=== PATIENT | female | born 1990 | race Caucasian/White ===

== ENCOUNTER 2023-04-25 15:29 | Inpatient (IN) | payer MEDICARE, MEDICAID, SELFPAY ==
[2023-04-25 15:56] VITALS: BP 118/79; BP 126/64; PULSE 56; PULSE 97; RESP 18; TEMP 36.3; O2SAT 100; O2SAT 96; BMI 23.7
--- NOTE | 2023-04-25 16:24 | PC.NURSE ---
per ems pt called 911 and reported that she thinks cameras are in her house and someone is following her. she admits to both visual and auditory hallucination. denies si/hi. pt a+o x3, denies pain, vss.
[2023-04-25 16:51] LABS: Appearance Urine Turbid; Color Urine Yellow; Glucose Urine UA Negative (Negative); Leukocyte Esterase Urine Moderate (2+) (Negative); Nitrite Urine Negative (Negative); Specific Gravity - Urine 1.015 (1.005-1.025); UMIC TRIGGER UACC YES; UPreg QC Valid YES; Urine Blood Negative (Negative); Urine Ketones 15 mg/dL (Negative); Urine Pregnancy NEGATIVE (NEGATIVE); Urine Protein Trace mg/dL (Neg-Trace)
[2023-04-25 16:58] LABS: Amphetamine Screen Urine Not Detected (Not Detect); Barbiturates, Urine Not Detected (Not Detect); Benzodiazepines Screen Urine Not Detected (Not Detect); Cannabinoid Screen Urine POSITIVE (Not Detect); Cocaine Screen Urine POSITIVE (Not Detect); Fentanyl, urine POSITIVE (Not Detect); Opiate Screen Urine POSITIVE (Not Detect); Phencyclidine Screen Urine Not Detected (Not Detect)
[2023-04-25 17:06] LABS: Bacteria Urine 2+ (None Seen); Hyaline Casts Urine 0-2 /LPF (0-2); UACC Culture Trigger YES; WBC Urine 21-50 /HPF (0-5)
[2023-04-25 17:12] LABS: COVID-19 Test Negative (Negative); IDNOW Serial# BCCEAD1C
--- NOTE | 2023-04-25 17:12 | ED_ITS ---
HPI - Psych General Chief Complaint: Psychiatric Symptoms Stated Complaint: CRISIS Time Seen by Provider: 04/25/23 16:00 Source: patient Mode of arrival: EMS Limitations: no limitations History of Present Illness HPI Narrative: Patient is a 32-year-old female who presents emergency department via EMS, reportedly she called 911 stating that she believes there are cameras in her home and that someone is following her. When asked she denies any drug or alcohol usage. She denies being on any medications at home. She denies any physical complaints at this time. Related Data Home Medications Medication Instructions Recorded Confirmed No Known Home Meds 04/25/23 04/25/23 Allergies Allergy/AdvReac Type Severity Reaction Status Date / Time No Known Allergies Allergy Verified 04/25/23 16:12 Review of Systems 2 Review of Systems: Yes all other systems are reviewed and are negative [facility] Past Medical History Attestation statement: The following information was validated with the patient. Source: old records reviewed Social History Social History Smoked in Last 30 Days: Yes Advance Directives: No Advance Directives Information Provided: No Healthcare Proxy: No Guardian: No Physical Exam 2 Vital Signs: Vital Signs: Last Vital Signs Temp 97.4 F 04/26/23 04:57 Pulse 74 04/26/23 04:57 Resp 16 04/26/23 04:57 BP 127/90 H 04/26/23 04:57 Pulse Ox 100 04/26/23 04:57 O2 Del Method Room Air 04/26/23 04:57 BMI result Body Mass Index 23.7 Appearance: Alert.?Oriented to person, place and time. No acute distress.?Normal affect. Eyes: Pupils equal, round and reactive to light.? ENT: Pharynx normal.?? Neck: Normal inspection.? Neck supple.?? CVS: Heart sounds normal. Normal heart rate and rhythm.? Pulses normal.?? Respiratory: No respiratory distress.? Lung sounds clear to auscultation bilaterally?? Abdomen: Soft and non-tender. Normoactive bowel sounds.?? Skin: Skin warm and dry.? Normal skin color.? ? Extremities: No lower extremity edema. Neuro: Moves all extremities spontaneously. Sensation intact bilaterally. CN II- XII intact. No focal neuro deficits. Ambulates with normal steady gait. Course Reevaluation(s) Reevaluation #1: Patient was evaluated by care team, she was placed on a Section 12 for inpatient bed search due to paranoia and delusions. Time: 01:47 Reevaluation #2: Physician observation continued. VS stable, inpatient bed search, RN reports no acute events overnight. started on macrobid x 5 days for UTI Medications Administered Discontinued Medications Generic Name Dose Route Start Last Admin Trade Name Te[place] PRN Reason Stop Dose Admin Cefuroxime Axetil 500 mg 04/25/23 17:34 04/25/23 17:58 Cefuroxime Axetil 500 Mg Tablet PO 04/25/23 17:35 500 mg ONCE ONE Administration Lorazepam 2 mg 04/26/23 06:02 04/26/23 06:10 Lorazepam 1 Mg Tablet PO 04/26/23 06:03 2 mg ONCE ONE Administration Medical Decision Making Medical Decision Making [facility] Narrative: Patient is a 32-year-old female presents emergency department via a EMS with apparently a and delusions. Denies any drug or alcohol usage, although upon examination she does have injection mckinnon to the bilateral arms. When asked she states ?they are old?. She denies any suicidal or homicidal ideations. She has no physical complaints at this time. Differential Diagnosis Differential Diagnoses: The differential diagnosis associated with the presentation includes (Paranoia, psychosis, substance use disorder) Admission/Observation Consideration of admission/observation: Escalation of care including admission/observation considered (Physician observation, inpatient bed search) Lab Data CBC and CMP are overall unremarkable. Urinalysis with pyuria, presence of squamous epithelial cells, no genitourinary symptoms, likely contamination. Toxicology testing positive for opiates, fentanyl, cocaine, and marijuana. 04/25/23 18:57 04/25/23 18:57 Labs: Lab Results 04/25/23 04/25/23 04/25/23 Range/Units 16:35 16:35 16:36 WBC (4.8-10.8) X10*3/uL RBC (4.20-5.50) X10*6/uL Hgb (12.0-16.0) g/dl Hct (37.0-47.0) % MCV (80.0-98.0) fL MCH (27.0-33.0) pg MCHC (31.0-35.0) g/dl RDW (11.0-16.0) % Plt Count (160-400) X10*3/uL MPV (9.4-12.3) fL Immature Gran % (Auto) (0.0-0.4) % Neut % (Auto) (45-73) % Lymph % (Auto) (20-40) % [place] % (Auto) (2-11) % Eos % (Auto) (0-4) % Baso % (Auto) (0-2) % Lymph # (Auto) (1.2-4.9) X10*3/uL [place] # (Auto) (0.1-1.2) X10*3/uL Eos # (Auto) (0.0-0.4) X10*3/uL Baso # (Auto) (0.0-0.2) X10*3/uL Abs Immat Gran (auto) (0.00-0.03) X10*3/uL Absolute Neuts (auto) (2.0-8.3) x10*3/uL Absolute Nucleated RBC (0.0-0.012) X10*3/uL Nucleated RBC % (auto) (0.0-0.2) /100WBC Sodium (135-145) mmol/L Potassium (3.3-5.1) mmol/L Chloride (96-108) mmol/L Carbon Dioxide (22-29) mmol/L Anion Gap (12-20) BUN (9-16) mg/dL Creatinine (0.5-1.4) mg/dL Estim Creat Clear Calc Estimated GFR Random Glucose (60-115) mg/dL Calcium (8.4-10.2) mg/dL Total Bilirubin (0.0-1.0) mg/dL AST (5-31) U/L ALT (0-31) U/L Alkaline Phosphatase (39-117) U/L Total Protein (6.5-8.0) g/dL Albumin (3.5-5.0) g/dL Urine Color Yellow Urine Appearance Turbid Urine pH 8.0 (5.0-9.0) Ur Specific [place] 1.015 (1.005-1.025) Urine Protein Trace (Neg-Trace) mg/dL Urine Glucose (UA) Negative (Negative) mg/dL Urine Ketones 15 (Negative) mg/dL Urine Blood Negative (Negative) Urine Nitrite Negative (Negative) Ur Leukocyte Esterase Moderate (2+) H (Negative) Urine RBC 6-10 H (0-2) /HPF Urine WBC 21-50 H (0-5) /HPF Ur Squamous Epith Cells 11-20 (0-2) /HPF Urine Bacteria 2+ (None Seen) Hyaline Casts 0-2 (0-2) /LPF Urine Test NEGATIVE (NEGATIVE) Urine Opiates Screen POSITIVE H (Not Detect) Urine Fentanyl Screen POSITIVE H (Not Detect) Ur Barbiturates Screen Not Detected (Not Detect) Ur Phencyclidine Scrn Not Detected (Not Detect) Ur Amphetamines Screen Not Detected (Not Detect) U Benzodiazepines Scrn Not Detected (Not Detect) Urine Cocaine Screen POSITIVE H (Not Detect) U Marijuana (THC) Screen POSITIVE H (Not Detect) Ethyl Alcohol mg/dL COVID-19 ([facility]) (Negative) COVID-19 Clin Com 04/25/23 04/25/23 04/25/23 Range/Units 16:38 18:57 18:57 WBC 7.1 (4.8-10.8) X10*3/uL RBC 4.20 (4.20-5.50) X10*6/uL Hgb 13.3 (12.0-16.0) g/dl Hct 38.3 (37.0-47.0) % MCV 91.2 (80.0-98.0) fL MCH 31.7 (27.0-33.0) pg MCHC 34.7 (31.0-35.0) g/dl RDW 12.1 (11.0-16.0) % Plt Count 295 (160-400) X10*3/uL MPV 9.4 (9.4-12.3) fL Immature Gran % (Auto) 0.1 (0.0-0.4) % Neut % (Auto) 58.2 (45-73) % Lymph % (Auto) 33.3 (20-40) % [place] % (Auto) 6.6 (2-11) % Eos % (Auto) 1.5 (0-4) % Baso % (Auto) 0.3 (0-2) % Lymph # (Auto) 2.4 (1.2-4.9) X10*3/uL [place] # (Auto) 0.5 (0.1-1.2) X10*3/uL Eos # (Auto) 0.1 (0.0-0.4) X10*3/uL Baso # (Auto) 0.0 (0.0-0.2) X10*3/uL Abs Immat Gran (auto) 0.01 (0.00-0.03) X10*3/uL Absolute Neuts (auto) 4.1 (2.0-8.3) x10*3/uL Absolute Nucleated RBC 0.000 (0.0-0.012) X10*3/uL Nucleated RBC % (auto) 0.0 (0.0-0.2) /100WBC Sodium 140 (135-145) mmol/L Potassium 3.9 (3.3-5.1) mmol/L Chloride 110 H (96-108) mmol/L Carbon Dioxide 25 (22-29) mmol/L Anion Gap 9 L (12-20) BUN 5 L (9-16) mg/dL Creatinine 0.66 (0.5-1.4) mg/dL Estim Creat Clear Calc 93.2 Estimated GFR > 60 Random Glucose 74 (60-115) mg/dL Calcium 9.5 (8.4-10.2) mg/dL Total Bilirubin 0.6 (0.0-1.0) mg/dL AST 25 (5-31) U/L ALT 19 (0-31) U/L Alkaline Phosphatase 64 (39-117) U/L Total Protein 6.9 (6.5-8.0) g/dL Albumin 3.9 (3.5-5.0) g/dL Urine Color Urine Appearance Urine pH (5.0-9.0) Ur Specific [place] (1.005-1.025) Urine Protein (Neg-Trace) mg/dL Urine Glucose (UA) (Negative) mg/dL Urine Ketones (Negative) mg/dL Urine Blood (Negative) Urine Nitrite (Negative) Ur Leukocyte Esterase (Negative) Urine RBC (0-2) /HPF Urine WBC (0-5) /HPF Ur Squamous Epith Cells (0-2) /HPF Urine Bacteria (None Seen) Hyaline Casts (0-2) /LPF Urine Test (NEGATIVE) Urine Opiates Screen (Not Detect) Urine Fentanyl Screen (Not Detect) Ur Barbiturates Screen (Not Detect) Ur Phencyclidine Scrn (Not Detect) Ur Amphetamines Screen (Not Detect) U Benzodiazepines Scrn (Not Detect) Urine Cocaine Screen (Not Detect) U Marijuana (THC) Screen (Not Detect) Ethyl Alcohol < 10 mg/dL COVID-19 ([facility]) Negative (Negative) COVID-19 Clin Com See Note Independent Historian Clinical information obtained from an independent historian. History obtained from or confirmed by: EMS Discharge Plan Discharge Clinical Impression: Acute paranoia, Substance use Patient Disposition: Still a Patient Prescriptions: No Action No Known Home Meds Interventions: Powell-Suicide Risk Severity Scale Last Done: 04/26/23 05:00
[2023-04-25 19:06] LABS: MANUAL DIFF FLAG NO
[2023-04-25 19:13] LABS: Basophils Percent Auto 0.3 % (0-2); Eosinophils Absolute Auto 0.1 X10*3/uL (0.0-0.4); Eosinophils Percent Auto 1.5 % (0-4); Hematocrit 38.3 % (37.0-47.0); Hemoglobin 13.3 g/dl (12.0-16.0); Imm Gran Abs Auto 0.01 X10*3/uL (0.00-0.03); Imm Gran Pct Auto 0.1 % (0.0-0.4); Lymphocytes Absolute Auto 2.4 X10*3/uL (1.2-4.9); Lymphocytes Percent Auto 33.3 % (20-40); Mean Corpuscular HGB Conc 34.7 g/dl (31.0-35.0); Mean Corpuscular Hemoglobin 31.7 pg (27.0-33.0); Mean Corpuscular Volume 91.2 fL (80.0-98.0); Mean Platelet Volume 9.4 fL (9.4-12.3); Monocytes Absolute Auto 0.5 X10*3/uL (0.1-1.2); Monocytes Percent Auto 6.6 % (2-11); Neutrophils Absolute Auto 4.1 x10*3/uL (2.0-8.3); Neutrophils Percent Auto 58.2 % (45-73); Platelet Count 295 X10*3/uL (160-400); Red Cell Distribution Width 12.1 % (11.0-16.0); White Blood Count 7.1 X10*3/uL (4.8-10.8)
[2023-04-25 19:27] LABS: Alanine Aminotransferase 19 U/L (0-31); Albumin Level 3.9 g/dL (3.5-5.0); Alkaline Phosphatase 64 U/L (39-117); Anion Gap 9 (12-20); Aspartate Amino Transferase 25 U/L (5-31); Bilirubin Total 0.6 mg/dL (0.0-1.0); Blood Urea Nitrogen 5 mg/dL (9-16); Calcium 9.5 mg/dL (8.4-10.2); Carbon Dioxide 25 mmol/L (22-29); Chloride 110 mmol/L (96-108); Creatinine Clr Calc Pharmacy 93.2; Estimated Glomerular Filt Rate > 60; Ethanol < 10 mg/dL; Glucose Random 74 mg/dL (60-115); Potassium 3.9 mmol/L (3.3-5.1); Sodium 140 mmol/L (135-145); Total Protein 6.9 g/dL (6.5-8.0)
--- NOTE | 2023-04-26 | ECG_ITS ---
Test Reason : ASSESS QT INTERVAL Blood Pressure : / mmHG Vent. Rate : 072 BPM Atrial Rate : 078 BPM P-R Int : 134 ms QRS Dur : 070 ms QT Int : 402 ms P-R-T Axes : 069 067 055 degrees QTc Int : 440 ms Sinus rhythm with marked sinus arrhythmia Possible Left atrial enlargement Septal infarct , age undetermined Abnormal ECG No previous ECGs available Referred By: Lana Gee Electronically Signed By:DIANE PEREZ
[2023-04-26 04:57] VITALS: BP 127/90; PULSE 74; RESP 16; TEMP 36.3; O2SAT 100
--- NOTE | 2023-04-26 05:43 | PC.NURSE ---
Patient slept through the night, no distress observed/reported at this time may withdraw from opiates later, behavior non concerning, med rec completed/currently not on any medication, patient was assessed by care team, disposition is section 12 inpatient bed search,VSS, labs completed/resulted, will continue to monitor.
[2023-04-26] MEDS: LORazepam 1 MG TABLET 2 MG PO (06:10)
--- NOTE | 2023-04-26 07:28 | PC.NURSE ---
Patient appears to remain asleep at present respirations are even and unlabored patient appears in no distress.
--- NOTE | 2023-04-26 10:55 | HE.PHANOTE ---
RE: methadone Received verification form, last dose of 40mg on 04/24/23 [facility]
[2023-04-26 11:16] VITALS: BP 134/91; PULSE 78; RESP 18; TEMP 36.7; O2SAT 100
[2023-04-26] MEDS: methADONE HCl 20 MG/2 ML ORAL.CONC 40 MG PO (11:18)
[2023-04-26] MEDS: Nitrofurantoin Monohyd/M-Cryst 100 MG CAPSULE PO (11:19)
[2023-04-26] MEDS: Ondansetron ODT 4 MG TAB.RAPDIS TRANSLINGU (11:19)
--- NOTE | 2023-04-26 15:13 | PC.NURSE ---
Assumed care of patient at 1500, patient is sleeping at this time, respirations even and unlabored, no apparent distress
--- NOTE | 2023-04-26 17:00 | PC.NURSE ---
report called to M3
[2023-04-26 18:39] VITALS: BP 132/84; PULSE 68; RESP 16; TEMP 37.2; O2SAT 96
[2023-04-26 18:44] VITALS: BMI 19.0
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
--- NOTE | 2023-04-27 07:51 | PC.NURSE ---
Pt refused flu vaccine at this time
[2023-04-27 08:00] VITALS: BP 133/84; PULSE 87; RESP 18; TEMP 36.9; O2SAT 98
[2023-04-27] MEDS: Nitrofurantoin Monohyd/M-Cryst 100 MG CAPSULE PO ×2 (08:54→20:48)
[2023-04-27] MEDS: methADONE HCl 20 MG/2 ML ORAL.CONC 40 MG PO (08:54)
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
[2023-04-27] MEDS: hydrOXYzine HCL 25 MG TABLET PO ×2 (09:41→15:47)
[2023-04-27] MEDS: Ondansetron ODT 4 MG TAB.RAPDIS TRANSLINGU (13:56)
[2023-04-27] MEDS: cloNIDine HCL 0.1 MG TABLET PO ×2 (14:54→20:47)
[2023-04-27] MEDS: Acetaminophen 325 MG TABLET 650 MG PO (14:56)
[2023-04-27] MEDS: Nicotine Polacrilex 2 MG GUM 4 MG BUCCAL (15:47)
[2023-04-27 20:35] VITALS: BP 100/61; PULSE 96; RESP 16; TEMP 36.3; O2SAT 99
[2023-04-27] MEDS: Prazosin HCL 1 MG CAPSULE PO (20:48)
[2023-04-27] MEDS: OLANZapine 10 MG TABLET PO (20:49)
[2023-04-27] MEDS: lamoTRIgine 25 MG TABLET PO (20:49)
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
[2023-04-28 09:00] VITALS: BP 118/76; PULSE 70; RESP 14; TEMP 36.7; O2SAT 95
[2023-04-28] MEDS: methADONE HCl 20 MG/2 ML ORAL.CONC 40 MG PO (09:01)
[2023-04-28] MEDS: Ondansetron ODT 4 MG TAB.RAPDIS TRANSLINGU (09:07)
[2023-04-28] MEDS: OLANZapine 5 MG TABLET PO ×2 (11:12→22:00)
[2023-04-28] MEDS: clonazePAM 1 MG TABLET PO ×2 (11:12→22:01)
[2023-04-28] MEDS: Nitrofurantoin Monohyd/M-Cryst 100 MG CAPSULE PO ×2 (11:13→22:00)
[2023-04-28] MEDS: cloNIDine HCL 0.1 MG TABLET PO (11:13)
[2023-04-28] MEDS: Omeprazole 20 MG CAPSULE.DR PO (11:13)
[2023-04-28 15:29] VITALS: BP 73/44; PULSE 98; RESP 18; TEMP 36.6; O2SAT 98
[2023-04-28 15:31] VITALS: BP 80/52; PULSE 98
--- NOTE | 2023-04-28 15:35 | PC.NURSE ---
1500 PC check bp with dynamap and reported hypotension to this RN. I rechecked manually and BP was 80/50 with HR 98. Pt denies dizziness at present. Pt Brigitte Poole PAYROLL ACCOUNTANT informed. clonidine dcd. Pt was encouraged to drink fluids - full water pitcher, gingerale and milk provided at bedside. Pt c/o feeling cold. more blankets provided. Pt states, I have been asking for an IV since I got here. Will recheck VS in one hour per Brigitte Poole. PAYROLL ACCOUNTANT
[2023-04-28 16:30] VITALS: BP 90/56; PULSE 98
[2023-04-28 19:55] VITALS: BP 73/56; PULSE 66; TEMP 36.6; O2SAT 98
[2023-04-28] MEDS: lamoTRIgine 25 MG TABLET PO (22:01)
[2023-04-29] MEDS: Omeprazole 20 MG CAPSULE.DR PO (06:36)
[2023-04-29 09:00] VITALS: BP 139/87; PULSE 104; RESP 17; TEMP 38; O2SAT 98
[2023-04-29] MEDS: methADONE HCl 20 MG/2 ML ORAL.CONC 40 MG PO (09:27)
[2023-04-29] MEDS: clonazePAM 1 MG TABLET PO ×2 (09:28→21:34)
[2023-04-29] MEDS: OLANZapine 5 MG TABLET PO ×2 (09:28→21:34)
[2023-04-29] MEDS: Nitrofurantoin Monohyd/M-Cryst 100 MG CAPSULE PO ×2 (09:28→21:34)
[2023-04-29] MEDS: Ondansetron ODT 4 MG TAB.RAPDIS 8 MG TRANSLINGU ×2 (09:28→17:16)
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
[2023-04-29] MEDS: Acetaminophen 325 MG TABLET 650 MG PO (17:15)
[2023-04-29] MEDS: hydrOXYzine HCL 25 MG TABLET PO (17:15)
[2023-04-29 19:50] VITALS: BP 116/75; PULSE 100; RESP 18; TEMP 36.2; O2SAT 100
[2023-04-29] MEDS: lamoTRIgine 25 MG TABLET PO (21:33)
[2023-04-29] MEDS: Ibuprofen 400 MG TABLET PO (21:33)
[2023-04-29] MEDS: Prazosin HCL 1 MG CAPSULE PO (21:34)
[2023-04-30] MEDS: Omeprazole 20 MG CAPSULE.DR PO (06:40)
[2023-04-30] MEDS: hydrOXYzine HCL 25 MG TABLET PO ×2 (06:44→18:18)
[2023-04-30] MEDS: Acetaminophen 325 MG TABLET 650 MG PO ×2 (06:44→14:53)
[2023-04-30] MEDS: Ondansetron ODT 4 MG TAB.RAPDIS 8 MG TRANSLINGU ×2 (06:45→14:54)
[2023-04-30 07:49] LABS: MANUAL DIFF FLAG NO
[2023-04-30 07:51] VITALS: BP 109/63; PULSE 91; RESP 16; TEMP 36.4; O2SAT 100
[2023-04-30 07:51] LABS: Basophils Percent Auto 0.1 % (0-2); Eosinophils Absolute Auto 0.1 X10*3/uL (0.0-0.4); Eosinophils Percent Auto 1.9 % (0-4); Hematocrit 38.4 % (37.0-47.0); Hemoglobin 13.1 g/dl (12.0-16.0); Imm Gran Abs Auto 0.01 X10*3/uL (0.00-0.03); Imm Gran Pct Auto 0.1 % (0.0-0.4); Lymphocytes Percent Auto 57.9 % (20-40); Mean Corpuscular HGB Conc 34.1 g/dl (31.0-35.0); Mean Corpuscular Hemoglobin 31.3 pg (27.0-33.0); Mean Corpuscular Volume 91.9 fL (80.0-98.0); Mean Platelet Volume 9.7 fL (9.4-12.3); Monocytes Absolute Auto 0.4 X10*3/uL (0.1-1.2); Monocytes Percent Auto 6.4 % (2-11); Neutrophils Absolute Auto 2.3 x10*3/uL (2.0-8.3); Neutrophils Percent Auto 33.6 % (45-73); Platelet Count 216 X10*3/uL (160-400); Red Blood Count 4.18 X10*6/uL (4.20-5.50); Red Cell Distribution Width 12.1 % (11.0-16.0); White Blood Count 6.9 X10*3/uL (4.8-10.8)
[2023-04-30] MEDS: clonazePAM 1 MG TABLET PO ×2 (07:58→21:42)
[2023-04-30] MEDS: Nitrofurantoin Monohyd/M-Cryst 100 MG CAPSULE PO ×2 (07:58→21:42)
[2023-04-30] MEDS: OLANZapine 5 MG TABLET PO ×2 (08:00→21:42)
[2023-04-30] MEDS: methADONE HCl 20 MG/2 ML ORAL.CONC 40 MG PO (08:01)
[2023-04-30 08:04] LABS: Anion Gap 11 (12-20); Blood Urea Nitrogen 13 mg/dL (9-16); Calcium 9.3 mg/dL (8.4-10.2); Carbon Dioxide 26 mmol/L (22-29); Chloride 105 mmol/L (96-108); Creatinine Clr Calc Pharmacy 88.7; Estimated Glomerular Filt Rate > 60; Glucose Random 83 mg/dL (60-115); Potassium 3.6 mmol/L (3.3-5.1); Sodium 138 mmol/L (135-145)
--- NOTE | 2023-04-30 12:46 | P.PNPSI_ITS ---
Subjective Subjective Date of Service: 04/30/23 Reason For Visit: paranoid Subjective Notes: 3 Day Interim History: gabapentin 200 tid masspat, start 100mg tid Diagnostics Vital Signs (24Hr): Vital Signs - 24 hr 04/29/23 19:50 04/30/23 07:51 Temperature 97.2 F 97.6 F Pulse Rate 100 91 Respiratory Rate 18 16 Blood Pressure 116/75 109/63 Pulse Oximetry 100 100 Oxygen Delivery Method Room Air Room Air BMI result Body Mass Index 19.0 Labs 04/30/23 07:44 04/30/23 07:44 Labs: Laboratory Results - last 48 hr 04/30/23 07:44 WBC 6.9 RBC 4.18 L Hgb 13.1 Hct 38.4 MCV 91.9 MCH 31.3 MCHC 34.1 RDW 12.1 Plt Count 216 D MPV 9.7 Immature Gran % (Auto) 0.1 Neut % (Auto) 33.6 L Lymph % (Auto) 57.9 H [place] % (Auto) 6.4 Eos % (Auto) 1.9 Baso % (Auto) 0.1 Lymph # (Auto) 4.0 [place] # (Auto) 0.4 Eos # (Auto) 0.1 Baso # (Auto) 0.0 Abs Immat Gran (auto) 0.01 Absolute Neuts (auto) 2.3 Absolute Nucleated RBC 0.000 Nucleated RBC % (auto) 0.0 Sodium 138 Potassium 3.6 Chloride 105 Carbon Dioxide 26 Anion Gap 11 L BUN 13 Creatinine 0.66 Estim Creat Clear Calc 88.7 Estimated GFR > 60 Random Glucose 83 Calcium 9.3 Medications Medications Current Medications Acetaminophen (Acetaminophen 325 Mg Tablet) 650 mg PO Q6H PRN PRN Reason: Headache/Pain Mild Scale (1-3) Last Admin: 04/30/23 06:44 Dose: 650 mg Al Hydroxide/Mg Hydroxide (Magnesium Hydrox/Alum Hydrox 30 Ml Oral.Susp) 30 ml PO Q6H PRN PRN Reason: Heartburn/Nausea Clonazepam (Clonazepam 1 Mg Tablet) 1 mg PO BID [facility] Last Admin: 04/30/23 07:58 Dose: 1 mg Clonazepam (Clonazepam 0.5 Mg Tablet) 0.5 mg PO DAILY PRN PRN Reason: severe anxiety Gabapentin (Gabapentin 100 Mg Capsule) 100 mg PO TID [facility] Hydroxyzine HCl (Hydroxyzine Hcl 25 Mg Tablet) 25 mg PO Q6H PRN PRN Reason: Anxiety Last Admin: 04/30/23 06:44 Dose: 25 mg Ibuprofen (Ibuprofen 400 Mg Tablet) 400 mg PO Q6H PRN PRN Reason: Pain, Moderate(Pain Scale 4-6) Last Admin: 04/29/23 21:33 Dose: 400 mg Lamotrigine (Lamotrigine 25 Mg Tablet) 25 mg PO BEDTIME [facility] Last Admin: 04/29/23 21:33 Dose: 25 mg Loratadine (Loratadine 10 Mg Tablet) 10 mg PO DAILY [facility] Magnesium Hydroxide (Milk Of Magnesia 30 Ml Oral.Susp) 30 ml PO DAILY PRN PRN Reason: Constipation Methadone HCl (Methadone Hcl 20 Mg/2 Ml Oral.Conc) 40 mg PO DAILY [facility] Last Admin: 04/30/23 08:01 Dose: 40 mg Multivitamins/Vitamin C (Multivitamin Tablet) 1 tab PO DAILY [facility] Nicotine Polacrilex (Nicotine Polacrilex 2 Mg Gum) 4 mg BUCCAL Q2H PRN PRN Reason: Nicotine Cravings Last Admin: 04/27/23 15:47 Dose: 4 mg Nitrofurantoin Macrocrystals (Nitrofurantoin Monohyd/M-Cryst 100 Mg Capsule) 100 mg PO BID [facility] Stop: 05/01/23 09:29 Last Admin: 04/30/23 07:58 Dose: 100 mg Olanzapine (Olanzapine 5 Mg Tablet) 5 mg PO BID [facility] Last Admin: 04/30/23 08:00 Dose: 5 mg Omeprazole (Omeprazole 20 Mg Capsule.Dr) 20 mg PO DAILY@0630 [facility] Last Admin: 04/30/23 06:40 Dose: 20 mg Ondansetron HCl (Ondansetron Odt 4 Mg Tab.Rapdis) 8 mg TRANSLINGU Q8H PRN PRN Reason: Nausea and Vomiting Last Admin: 04/30/23 06:45 Dose: 8 mg Prazosin HCl (Prazosin Hcl 1 Mg Capsule) 1 mg PO BEDTIME [facility]; Protocol Last Admin: 04/29/23 21:34 Dose: 1 mg Tetrahydrozoline HCl (Tetrahydrozoline Hcl 0.05% Oph 15 Ml Drpbtl) 1 drop EYE- BOTH QID PRN PRN Reason: allergies Allergies Allergies Allergy/AdvReac Type Severity Reaction Status Date / Time No Known Allergies Allergy Verified 04/25/23 16:12 Assessment & Plan Assessment & Plan (1) Bipolar 1 disorder: Status: Acute Code(s): F31.9 - Bipolar disorder, unspecified (2) Cocaine abuse: Status: Acute Code(s): F14.10 - Cocaine abuse, uncomplicated (3) Opiate use: Status: Acute Code(s): F11.90 - Opioid use, unspecified, uncomplicated Plan Patient is a 32 year old female who self presented to ER d/t paranoid delusions that someone is following her, poisening her and has placed cameras in her apartment secondary to medication noncompliance and drug use. Bipolar d/o r/o Substance induced psychosis Plan: 15 minute safety checks Referral to outpatient psychiatric providers Referral to substance abuse treatment 04/28: Patient presents as irritable and guarded today. Pt stated, I'm having my period, I'm nauseous, anxious and overwhelmed . She continues to report auditory hallucinations but would not elaborate on context. Pt reports she would like to be discharged because she is uncomfortable being around so many people . pt on 3 day. Denies SI. Added Klonopin 1mg PO BID, changed Zyprexa to 5mg PO bid per pt request. 04/29/2023: Overall reasonably engaged. Endorses nausea. Also observed to be eating very well in the community. Low energy and temp 100.4 degrees, recently started on antibiotics for UTI. Time Spent With Patient Time: Total time managing care of this patient today ____ minutes.
[2023-04-30] MEDS: Gabapentin 100 MG CAPSULE PO ×2 (14:23→21:42)
[2023-04-30] MEDS: Multivitamin TABLET 1 TAB PO (14:23)
[2023-04-30] MEDS: Loratadine 10 MG TABLET PO (14:24)
[2023-04-30] MEDS: Tetrahydrozoline HCl 0.05% Oph 15 ML DRPBTL 1 DROP EYE-BOTH ×2 (14:24→18:21)
[2023-04-30] MEDS: Nicotine Polacrilex 2 MG GUM 4 MG BUCCAL (14:53)
[2023-04-30] MEDS: clonazePAM 0.5 MG TABLET PO (14:53)
--- NOTE | 2023-04-30 16:37 | P.PNPSI_ITS ---
Subjective Subjective Date of Service: 04/30/23 Reason For Visit: paranoid Interim History: met with patient. Discussed with Nursing. Noted lab work i.e. UTI and potential superimposed viral illness. No fevers since yesterday. Still nausea in context of antibiotic. Sharing well today. No psychosis. Is experiencing allergies which impact her skin and eyes. Also eager to meet with a private equity associate and consult placed for same on a routine basis. Sleep is okay. Endorsed anxiety and reviewed mass pat- Gabapentin 200 tid Medication Compliance: Yes Side effects from medications: No Attending Groups: Yes Review of Systems Acute medical concerns: No Review of Systems Review of Systems nausea - slightly less Mental Status Exam Mental Status Exam Narrative: pleasant. Engaged. Fairly presented. Organized. Seen in day area. Eating well. No SI. No HI. Endorses feeling depressed and anxious. Denies paranoia or hallucinations. Insight and judgment fair Diagnostics Vital Signs (24Hr): Vital Signs - 24 hr 04/29/23 19:50 04/30/23 07:51 Temperature 97.2 F 97.6 F Pulse Rate 100 91 Respiratory Rate 18 16 Blood Pressure 116/75 109/63 Pulse Oximetry 100 100 Oxygen Delivery Method Room Air Room Air BMI result Body Mass Index 19.0 Labs 04/30/23 07:44 04/30/23 07:44 Labs: Laboratory Results - last 48 hr 04/30/23 07:44 WBC 6.9 RBC 4.18 L Hgb 13.1 Hct 38.4 MCV 91.9 MCH 31.3 MCHC 34.1 RDW 12.1 Plt Count 216 D MPV 9.7 Immature Gran % (Auto) 0.1 Neut % (Auto) 33.6 L Lymph % (Auto) 57.9 H [place] % (Auto) 6.4 Eos % (Auto) 1.9 Baso % (Auto) 0.1 Lymph # (Auto) 4.0 [place] # (Auto) 0.4 Eos # (Auto) 0.1 Baso # (Auto) 0.0 Abs Immat Gran (auto) 0.01 Absolute Neuts (auto) 2.3 Absolute Nucleated RBC 0.000 Nucleated RBC % (auto) 0.0 Sodium 138 Potassium 3.6 Chloride 105 Carbon Dioxide 26 Anion Gap 11 L BUN 13 Creatinine 0.66 Estim Creat Clear Calc 88.7 Estimated GFR > 60 Random Glucose 83 Calcium 9.3 Medications Medications Current Medications Acetaminophen (Acetaminophen 325 Mg Tablet) 650 mg PO Q6H PRN PRN Reason: Headache/Pain Mild Scale (1-3) Last Admin: 04/30/23 14:53 Dose: 650 mg Al Hydroxide/Mg Hydroxide (Magnesium Hydrox/Alum Hydrox 30 Ml Oral.Susp) 30 ml PO Q6H PRN PRN Reason: Heartburn/Nausea Clonazepam (Clonazepam 1 Mg Tablet) 1 mg PO BID [facility] Last Admin: 04/30/23 07:58 Dose: 1 mg Clonazepam (Clonazepam 0.5 Mg Tablet) 0.5 mg PO DAILY PRN PRN Reason: severe anxiety Last Admin: 04/30/23 14:53 Dose: 0.5 mg Gabapentin (Gabapentin 100 Mg Capsule) 100 mg PO TID [facility] Last Admin: 04/30/23 14:23 Dose: 100 mg Hydroxyzine HCl (Hydroxyzine Hcl 25 Mg Tablet) 25 mg PO Q6H PRN PRN Reason: Anxiety Last Admin: 04/30/23 06:44 Dose: 25 mg Ibuprofen (Ibuprofen 400 Mg Tablet) 400 mg PO Q6H PRN PRN Reason: Pain, Moderate(Pain Scale 4-6) Last Admin: 04/29/23 21:33 Dose: 400 mg Lamotrigine (Lamotrigine 25 Mg Tablet) 25 mg PO BEDTIME [facility] Last Admin: 04/29/23 21:33 Dose: 25 mg Loratadine (Loratadine 10 Mg Tablet) 10 mg PO DAILY [facility] Last Admin: 04/30/23 14:24 Dose: 10 mg Magnesium Hydroxide (Milk Of Magnesia 30 Ml Oral.Susp) 30 ml PO DAILY PRN PRN Reason: Constipation Methadone HCl (Methadone Hcl 20 Mg/2 Ml Oral.Conc) 40 mg PO DAILY [facility] Last Admin: 04/30/23 08:01 Dose: 40 mg Multivitamins/Vitamin C (Multivitamin Tablet) 1 tab PO DAILY [facility] Last Admin: 04/30/23 14:23 Dose: 1 tab Nicotine Polacrilex (Nicotine Polacrilex 2 Mg Gum) 4 mg BUCCAL Q2H PRN PRN Reason: Nicotine Cravings Last Admin: 04/30/23 14:53 Dose: 4 mg Nitrofurantoin Macrocrystals (Nitrofurantoin Monohyd/M-Cryst 100 Mg Capsule) 100 mg PO BID [facility] Stop: 05/01/23 09:29 Last Admin: 04/30/23 07:58 Dose: 100 mg Olanzapine (Olanzapine 5 Mg Tablet) 5 mg PO BID [facility] Last Admin: 04/30/23 08:00 Dose: 5 mg Omeprazole (Omeprazole 20 Mg Capsule.Dr) 20 mg PO DAILY@0630 [facility] Last Admin: 04/30/23 06:40 Dose: 20 mg Ondansetron HCl (Ondansetron Odt 4 Mg Tab.Rapdis) 8 mg TRANSLINGU Q8H PRN PRN Reason: Nausea and Vomiting Last Admin: 04/30/23 14:54 Dose: 8 mg Prazosin HCl (Prazosin Hcl 1 Mg Capsule) 1 mg PO BEDTIME [facility]; Protocol Last Admin: 04/29/23 21:34 Dose: 1 mg Tetrahydrozoline HCl (Tetrahydrozoline Hcl 0.05% Oph 15 Ml Drpbtl) 1 drop EYE- BOTH QID PRN PRN Reason: allergies Last Admin: 04/30/23 14:24 Dose: 1 drop Allergies Allergies Allergy/AdvReac Type Severity Reaction Status Date / Time No Known Allergies Allergy Verified 04/25/23 16:12 Assessment & Plan Assessment & Plan (1) Bipolar 1 disorder: Status: Acute Code(s): F31.9 - Bipolar disorder, unspecified (2) Cocaine abuse: Status: Acute Code(s): F14.10 - Cocaine abuse, uncomplicated (3) Opiate use: Status: Acute Code(s): F11.90 - Opioid use, unspecified, uncomplicated Plan Patient is a 32 year old female who self presented to ER d/t paranoid delusions that someone is following her, poisening her and has placed cameras in her apartment secondary to medication noncompliance and drug use. Bipolar d/o r/o Substance induced psychosis Plan: 15 minute safety checks Referral to outpatient psychiatric providers Referral to substance abuse treatment 04/28: Patient presents as irritable and guarded today. Pt stated, I'm having my period, I'm nauseous, anxious and overwhelmed . She continues to report auditory hallucinations but would not elaborate on context. Pt reports she would like to be discharged because she is uncomfortable being around so many people . pt on 3 day. Denies SI. Added Klonopin 1mg PO BID, changed Zyprexa to 5mg PO bid per pt request. 04/29/2023: Overall reasonably engaged. Endorses nausea. Also observed to be eating very well in the community. Low energy and temp 100.4 degrees, recently started on antibiotics for UTI. 04/30/23: Order gabapentin as per MassPAT. Nutrition consult as per patient request Reason for continued inpatient stay Substantial Risk for: inability to function Time Spent With Patient Time: Total time managing care of this patient today ____ minutes.
[2023-04-30 18:00] VITALS: BP 122/71; PULSE 97; RESP 18; TEMP 36.7; O2SAT 99
[2023-04-30] MEDS: Ibuprofen 400 MG TABLET PO (18:18)
[2023-04-30] MEDS: Prazosin HCL 1 MG CAPSULE PO (21:42)
[2023-04-30] MEDS: lamoTRIgine 25 MG TABLET PO (21:42)
--- NOTE | 2023-04-30 23:47 | PC.NURSE ---
Addendum entered by Melvi Bridges RN 05/01/23 06:41: it is noted that patient is asking for multiple PRN medications throughout the night. she received Tylenol at 05:00 for reported back pain 05/30 and Ibuprofen at 06:30 for reported back pain 03/30. patient is displaying no outward signs of discomfort. patient asked for Zofran at 0630 for c/o nausea and was observed eating snacks directly after receiving the Zofran Original Note: Kerry is noted to be visible on the unit during the evening, she is social with select peers and pleasant upon approach. she c/o anxiety and requested PRN Atarax however, she had received the medcation 32 hours earlier. she also requested to receive Zofran however it was too soon to administer that medication as well the patient responded I wish they would make it so I could get it whenever I wanted it. I will just wait it's O.K. If I have nausea later I'll just ask for it patient c/o increased anxiety after meeting with her pianos and organs salesperson. patient was given her HS medications which included Klonopin. no further c/o of anxiety or nausea at this time, will continue to [place]
[2023-05-01] MEDS: Acetaminophen 325 MG TABLET 650 MG PO ×3 (05:04→21:47)
[2023-05-01] MEDS: hydrOXYzine HCL 25 MG TABLET PO ×2 (05:05→14:01)
[2023-05-01] MEDS: Ibuprofen 400 MG TABLET PO ×2 (06:27→23:08)
[2023-05-01] MEDS: Ondansetron ODT 4 MG TAB.RAPDIS 8 MG TRANSLINGU ×2 (06:30→23:11)
[2023-05-01] MEDS: Omeprazole 20 MG CAPSULE.DR PO (06:34)
[2023-05-01 08:00] VITALS: BP 130/77; PULSE 102; RESP 18; TEMP 36.7; O2SAT 100
[2023-05-01] MEDS: methADONE HCl 20 MG/2 ML ORAL.CONC 40 MG PO (08:44)
[2023-05-01] MEDS: Nicotine 14 MG PATCH.TD24 TRANSDERMA (08:45)
[2023-05-01] MEDS: Nitrofurantoin Monohyd/M-Cryst 100 MG CAPSULE PO (08:46)
[2023-05-01] MEDS: Multivitamin TABLET 1 TAB PO (08:46)
[2023-05-01] MEDS: OLANZapine 5 MG TABLET PO (08:46)
[2023-05-01] MEDS: Gabapentin 100 MG CAPSULE PO ×3 (08:47→21:47)
[2023-05-01] MEDS: Loratadine 10 MG TABLET PO (08:47)
[2023-05-01] MEDS: clonazePAM 1 MG TABLET PO ×2 (08:47→21:47)
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
--- NOTE | 2023-05-01 14:02 | MHC.CLN ---
NUTRITION CONSULT. PATIENT ASKED TO SPEAK TO DIETITIAN. DISCUSSED SUPPLEMENTS AVAILABLE TO PATIENT. ADDING ENSURE MAX PROTEIN TID (450 KCALS, 90 G PROTEIN) AND THRIVE FORTIFIED ICE CREAM BID (540 KCALS, 18 G PROTEIN). APPEARS THIN WITH BMI=19. REGULAR DIET AND SUPPLEMENTS APPROPRIATE TO PROMOTE INTAKE.
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
[2023-05-01] MEDS: clonazePAM 0.5 MG TABLET PO (15:35)
[2023-05-01] MEDS: Nicotine Polacrilex 2 MG GUM 4 MG BUCCAL (17:03)
[2023-05-01 18:06] LABS: CT PCR NOT DETECTED (Not Detect.); NG PCR NOT DETECTED (Not Detect.)
[2023-05-01 20:40] VITALS: BP 113/58; PULSE 107; RESP 18; TEMP 37; O2SAT 99
[2023-05-01] MEDS: Prazosin HCL 1 MG CAPSULE PO (21:47)
[2023-05-01] MEDS: lamoTRIgine 25 MG TABLET PO (21:47)
[2023-05-01] MEDS: QUEtiapine Fumarate 100 MG TABLET PO (21:47)
[2023-05-02 04:05] LABS: HBc Num1 0.17 S/CO (0.00-0.79); HBsAGNum1 0.34 S/CO (0.00-0.99); Hepatitis A Antibody IgM 0.24 Index (0-0.79); Hepatitis B Core Antibody Nonreactive (Nonreactive); Hepatitis B Surface Antigen Negative (Negative); ~HepC Num1 17.48 S/CO (0.00-0.79); ~Hepatitis A Antibody IgM Nonreactive (Nonreactive); ~Hepatitis B Surface Antibody NONREACTIVE (Nonreactive); ~Hepatitis C Antibody Reactive (Nonreactive)
[2023-05-02 04:18] LABS: HIV AB/AG Nonreactive (Nonreactive); HIV Num 1 0.06 S/CO (0.00-0.99)
[2023-05-02 04:22] LABS: Syphilis Screen Nonreactive (Nonreactive)
[2023-05-02] MEDS: Ibuprofen 400 MG TABLET PO ×2 (04:57→14:35)
[2023-05-02] MEDS: hydrOXYzine HCL 25 MG TABLET PO ×3 (04:58→22:05)
--- NOTE | 2023-05-02 05:10 | PC.NURSE ---
Kerry has made multiple somatic complaints and requests for PRN medications that are questionable IE. being awoken for HS medications and requesting anxiety medications because she is so nervous I can't sleep and I know I have a fever, I'm all sweaty when she is wearing a sweatshirt and covered by multiple blankets. patient also requested Zofran and when this grant writer questioned her she said well I haven't thrown up and I did just eat so I guess I really don't need it but when can i have it again . patient educated on the appropriate use of medications.
[2023-05-02] MEDS: Omeprazole 20 MG CAPSULE.DR PO (06:52)
[2023-05-02] MEDS: Ondansetron ODT 4 MG TAB.RAPDIS 8 MG TRANSLINGU ×3 (06:56→22:05)
[2023-05-02 08:00] VITALS: BP 127/74; PULSE 116; RESP 18; TEMP 37.2; O2SAT 100
[2023-05-02] MEDS: Nicotine 14 MG PATCH.TD24 TRANSDERMA (08:48)
[2023-05-02] MEDS: methADONE HCl 20 MG/2 ML ORAL.CONC 40 MG PO (08:49)
[2023-05-02] MEDS: Gabapentin 100 MG CAPSULE PO ×2 (08:50→14:17)
[2023-05-02] MEDS: Loratadine 10 MG TABLET PO (08:50)
[2023-05-02] MEDS: Multivitamin TABLET 1 TAB PO (08:50)
[2023-05-02] MEDS: clonazePAM 1 MG TABLET PO ×2 (08:50→23:47)
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
[2023-05-02] MEDS: clonazePAM 0.5 MG TABLET PO (13:31)
[2023-05-02 13:59] LABS: BV Int Neg Control Negative (Negative); BV Int Pos Control Positive (Positive)
[2023-05-02] MEDS: metroNIDAZOLE 500 MG TABLET PO (15:38)
[2023-05-02] MEDS: Magnesium Hydrox/Alum Hydrox 30 ML ORAL.SUSP PO (16:04)
[2023-05-02] MEDS: Lidocaine 4 % Patch ADH..PATCH 1 PATCH TRANSDERMA (17:14)
[2023-05-02] MEDS: Acetaminophen 325 MG TABLET 650 MG PO (17:18)
[2023-05-02 22:07] VITALS: BP 134/87; PULSE 92; TEMP 36.6; O2SAT 100
--- NOTE | 2023-05-02 23:01 | PC.NURSE ---
HS medications-has not yet taken HS medications as patient is c/o nausea. reports vomiting but not witnessed. given zofran and hydroxyzine with effects pending at this time.
[2023-05-02 23:49] VITALS: TEMP 36.3
--- NOTE | 2023-05-03 00:33 | PC.NURSE ---
respiratory panel requested and ordered. no temperature at this time, no cough but nausea and perspiration persists.
--- NOTE | 2023-05-03 00:37 | PC.NURSE ---
HS medications-gabapentin, lamictal, prazosin, seroquel held due to c/o persistant nausea and reports of vomiting-not witnessed
[2023-05-03 01:01] LABS: Influenza A PCR NEGATIVE (Negative); Influenza B PCR NEGATIVE (Negative); Resp Syncy Virus RNA Qual PCR NEGATIVE (Negative); SARS COV2 PCR INHOUSE NEGATIVE (Negative)
[2023-05-03 02:57] VITALS: TEMP 38
--- NOTE | 2023-05-03 02:57 | PC.NURSE ---
physical status-is presently asleep. did not wake up when temperature scan taken. current temperature 100.4. did not appear to be in any distress. not diaphoresis noted. respiratory panel negative.
[2023-05-03 06:35] VITALS: BP 119/85; PULSE 99; TEMP 37.1; O2SAT 100
[2023-05-03] MEDS: Ondansetron ODT 4 MG TAB.RAPDIS 8 MG TRANSLINGU ×2 (06:48→16:35)
[2023-05-03] MEDS: Omeprazole 20 MG CAPSULE.DR PO (06:50)
[2023-05-03] MEDS: hydrOXYzine HCL 25 MG TABLET PO ×3 (06:50→23:47)
--- NOTE | 2023-05-03 06:59 | PC.NURSE ---
flagyl-pt is refusing lynda reports she feels vomiting was due to medication.
[2023-05-03 08:08] VITALS: BP 112/59; PULSE 110; RESP 17; TEMP 36.6; O2SAT 98
[2023-05-03] MEDS: Multivitamin TABLET 1 TAB PO (08:16)
[2023-05-03] MEDS: methADONE HCl 20 MG/2 ML ORAL.CONC 40 MG PO (08:16)
[2023-05-03] MEDS: Gabapentin 100 MG CAPSULE PO ×3 (08:16→22:13)
[2023-05-03] MEDS: clonazePAM 1 MG TABLET PO ×2 (08:16→22:13)
[2023-05-03] MEDS: Lidocaine 4 % Patch ADH..PATCH 1 PATCH TRANSDERMA ×2 (08:17→14:20)
[2023-05-03] MEDS: Loratadine 10 MG TABLET PO (08:17)
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
[2023-05-03] MEDS: Acetaminophen 325 MG TABLET 650 MG PO ×2 (10:16→16:34)
[2023-05-03] MEDS: Ibuprofen 400 MG TABLET PO ×2 (14:01→23:47)
[2023-05-03] MEDS: clonazePAM 0.5 MG TABLET PO (14:11)
[2023-05-03] MEDS: Nicotine Polacrilex 2 MG GUM 4 MG BUCCAL ×2 (14:11→18:42)
[2023-05-03] MEDS: metroNIDAZOLE 500 MG TABLET PO (17:31)
[2023-05-03] MEDS: Magnesium Hydrox/Alum Hydrox 30 ML ORAL.SUSP PO (17:33)
[2023-05-03] MEDS: Tetrahydrozoline HCl 0.05% Oph 15 ML DRPBTL 1 DROP EYE-BOTH (18:29)
[2023-05-03] MEDS: QUEtiapine Fumarate 100 MG TABLET PO (22:12)
[2023-05-03] MEDS: lamoTRIgine 25 MG TABLET PO (22:13)
[2023-05-03] MEDS: Prazosin HCL 1 MG CAPSULE PO (22:13)
[2023-05-03 22:15] VITALS: BP 126/75; PULSE 107; TEMP 36.7; O2SAT 100
[2023-05-04] MEDS: Acetaminophen 325 MG TABLET 650 MG PO (01:50)
[2023-05-04] MEDS: Magnesium Hydrox/Alum Hydrox 30 ML ORAL.SUSP PO (01:50)
[2023-05-04] MEDS: Ondansetron ODT 4 MG TAB.RAPDIS 8 MG TRANSLINGU (01:51)
[2023-05-04] MEDS: metroNIDAZOLE 500 MG TABLET PO (06:38)
[2023-05-04] MEDS: Omeprazole 20 MG CAPSULE.DR PO (06:38)
[2023-05-04 07:00] VITALS: BMI 22.3
[2023-05-04 08:00] VITALS: BP 113/69; PULSE 120; RESP 16; TEMP 36.7; O2SAT 98
[2023-05-04] MEDS: Nicotine 14 MG PATCH.TD24 TRANSDERMA (08:47)
[2023-05-04] MEDS: methADONE HCl 20 MG/2 ML ORAL.CONC 40 MG PO (08:48)
[2023-05-04] MEDS: Gabapentin 100 MG CAPSULE PO (08:49)
[2023-05-04] MEDS: Loratadine 10 MG TABLET PO (08:50)
[2023-05-04] MEDS: Multivitamin TABLET 1 TAB PO (08:50)
[2023-05-04] MEDS: clonazePAM 1 MG TABLET PO (08:50)
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
[2023-05-04] MEDS: clonazePAM 0.5 MG TABLET PO (11:05)
[2023-05-04] MEDS: hydrOXYzine HCL 25 MG TABLET PO (11:05)
[2023-05-04] MEDS: Lidocaine 4 % Patch ADH..PATCH 2 PATCH TRANSDERMA (11:11)
[2023-05-04] MEDS: Nicotine Polacrilex 2 MG GUM 4 MG BUCCAL (11:19)
== END 2023-05-04 11:59 | disposition home or self-care (01) | DRG 885 ==
LOC: HO.ED 04-26 01:48 → HO.PADLT16 04-26 17:12
PROVIDERS: Nurse Practitioner Family; Obstetrics & Gynecology; Psychiatry & Neurology Psychiatry; Admitting Provider Psychiatry & Neurology Psychiatry; Emergency Provider Emergency Medicine; Responsible Provider Registered Nurse; Visit Provider Psychiatry & Neurology Psychiatry
DX: F31.9 Bipolar disorder, unspecified (principal); F11.20 Opioid dependence, uncomplicated; N39.0 Urinary tract infection, site not specified; A59.01 Trichomonal vulvovaginitis; F17.210 Nicotine dependence, cigarettes, uncomplicated; Z71.6 Tobacco abuse counseling; F14.10 Cocaine abuse, uncomplicated; Z20.822 Contact with and (suspected) exposure to COVID-19; Z79.899 Other long term (current) drug therapy
CPT/HCPCS: 0241U; 0353U; 36415; 80048; 80053; 80307; 81001; 81025; 85025; 86704; 86706; 86709; 86780; 86803; 87086; 87340; 87389; 87480; 87510; 87635; 87660; 93005; 99285; S9485

== ENCOUNTER → 2023-04-26 16:58 | Outpatient (BNV) | payer MEDICARE, MEDICAID, SELFPAY | PROVIDERS: Admitting Provider Psychiatry & Neurology Psychiatry; Emergency Provider Emergency Medicine; Responsible Provider Registered Nurse; Visit Provider Obstetrics & Gynecology | DX: A59.9 Trichomoniasis, unspecified (principal) | CPT/HCPCS: 99223 ==

== ENCOUNTER → 2023-04-26 16:58 | Outpatient (BNV) | payer MEDICARE, MEDICAID, SELFPAY | PROVIDERS: Admitting Provider Psychiatry & Neurology Psychiatry; Emergency Provider Emergency Medicine; Responsible Provider Registered Nurse; Visit Provider Registered Nurse | DX: F31.9 Bipolar disorder, unspecified (principal); F14.10 Cocaine abuse, uncomplicated; Z11.3 Encounter for screening for infections with a predominantly sexual mode of transmission | CPT/HCPCS: 90792; 99231; 99232; 99238 ==

== ENCOUNTER 2023-05-19 03:55 | Inpatient (IN) | payer MEDICARE, MEDICAID, SELFPAY ==
[2023-05-19] VITALS (7 sets, daily range): BP systolic 94–145; BP diastolic 52–98; PULSE 64–127; RESP 16–26; TEMP 36.4–37.2; O2SAT 96–100; BMI 25.4
--- NOTE | 2023-05-19 | ECG_ITS ---
Test Reason : MED CLEARANCE Blood Pressure : / mmHG Vent. Rate : 071 BPM Atrial Rate : 071 BPM P-R Int : 128 ms QRS Dur : 076 ms QT Int : 418 ms P-R-T Axes : 069 079 072 degrees QTc Int : 454 ms Normal sinus rhythm Normal ECG When compared with ECG of 26-APR-2023 10:39, Criteria for Septal infarct are no longer Present Referred By: Lana Gee Electronically Signed By:DIANE PEREZ
[2023-05-19] MEDS: LORazepam 2 MG/ML VIAL IM (04:00)
[2023-05-19] MEDS: diphenhydrAMINE HCL 50 MG/ML VIAL IM (04:00)
[2023-05-19] MEDS: Haloperidol Lactate 5 MG/ML VIAL IM (04:00)
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
--- NOTE | 2023-05-19 04:34 | PC.NURSE ---
Patient got restraint both mechanically and chemically immediately after releasing from handcuff, patient is grossly paranoid, exhibiting paranoid ideation associated with visual hallucination seeing snake in the pod, Ativan 2 mg IM, Haldol 5 mg IM, and Benadryl 50 mg IM administered at 0400, patient is currently being observed on 1:1 for safety, patient is gradually calming down as evidence by being less verbal, med rec completed/pending provider's approval, patient is placed on section 12 by ED provider, care consult ordered/pending evaluation in the morning, labs are pending at this time, we will approach when patient is more stable, will continue to monitor.
--- NOTE | 2023-05-19 05:15 | PC.NURSE ---
Patient currently in bed appears sleeping, VSS, 1:1 discontinued, mechanical restraint discontinued at 0500, ROM +/intact, respiration +/=/unlabored bilaterally, slip box changer completed/belonging list completed/filed, labs pending/provider aware, will continue to monitor.
[2023-05-19 05:24] LABS: COVID-19 Test Negative (Negative); IDNOW Serial# 6674DD1D
--- NOTE | 2023-05-19 09:08 | PC.NURSE ---
+pallor. respirations even/regular. no distress noted. resting. safety maintaned.
--- NOTE | 2023-05-19 09:24 | MHC.CARE ---
patient denying SI, requesting d/c and return to the [facility]. Attempting to reach [facility]/ [facility] to facilitate transport
--- NOTE | 2023-05-19 10:25 | PC.NURSE ---
denies nausea/vomiting/diff breathing/headache. VS stable. breathing normally. offered [facility]- declined. sleepy. staff at bedside requesting permission for blood draw. offered breakfast. +CMS. pt declined to answer if has SI/HI.
--- NOTE | 2023-05-19 10:26 | PC.NURSE ---
declined to complete columbia scale questioning at this time. no SI/HI behaviors. calm, cooperative
[2023-05-19 10:43] LABS: MANUAL DIFF FLAG NO
[2023-05-19 10:45] LABS: Basophils Percent Auto 0.1 % (0-2); Eosinophils Absolute Auto 0.2 X10*3/uL (0.0-0.4); Hematocrit 37.2 % (37.0-47.0); Hemoglobin 12.3 g/dl (12.0-16.0); Imm Gran Abs Auto 0.02 X10*3/uL (0.00-0.03); Imm Gran Pct Auto 0.3 % (0.0-0.4); Lymphocytes Absolute Auto 3.1 X10*3/uL (1.2-4.9); Lymphocytes Percent Auto 39.8 % (20-40); Mean Corpuscular HGB Conc 33.1 g/dl (31.0-35.0); Mean Corpuscular Hemoglobin 30.8 pg (27.0-33.0); Mean Platelet Volume 9.4 fL (9.4-12.3); Monocytes Absolute Auto 0.8 X10*3/uL (0.1-1.2); Monocytes Percent Auto 10.1 % (2-11); Neutrophils Absolute Auto 3.7 x10*3/uL (2.0-8.3); Neutrophils Percent Auto 47.7 % (45-73); Platelet Count 368 X10*3/uL (160-400); Red Cell Distribution Width 12.2 % (11.0-16.0); White Blood Count 7.8 X10*3/uL (4.8-10.8)
[2023-05-19 11:22] LABS: Alanine Aminotransferase 73 U/L (0-31); Albumin Level 3.9 g/dL (3.5-5.0); Alkaline Phosphatase 94 U/L (39-117); Anion Gap 14 (12-20); Aspartate Amino Transferase 77 U/L (5-31); Bilirubin Direct 0.1 mg/dL (0.0-0.5); Bilirubin Total 0.3 mg/dL (0.0-1.0); Blood Urea Nitrogen 10 mg/dL (9-16); Calcium 9.2 mg/dL (8.4-10.2); Carbon Dioxide 26 mmol/L (22-29); Chloride 108 mmol/L (96-108); Creatinine Clr Calc Pharmacy 90.9; Estimated Glomerular Filt Rate > 60; Ethanol < 10 mg/dL; Glucose Random 76 mg/dL (60-115); HCG Quantitative < 2 mIU/mL; Sodium 144 mmol/L (135-145); Total Protein 6.9 g/dL (6.5-8.0)
--- NOTE | 2023-05-19 11:33 | MHC.CARE ---
Pt is not clinically assessable at this time. CARE Team to follow up later this afternoon.
--- NOTE | 2023-05-19 14:05 | PC.NURSE ---
chelsi whitehead notified pt having body aches. pt denied n/v/headache/numbness/tingling/tremors/confusion/hypersensitivty to sounds or light/no hallucinations. denie si/hi. chelsi whitehead aware pt has not given urine- tried multiple times. also rn called methadone clinic as pt states takes 70mg methadone daily. chelsi whitehead notified pt drowsy and pa state no methadone. offered food again. repositioned with pillow. +CMS.
--- NOTE | 2023-05-19 15:12 | MHC.CARE ---
CARE Team attempted to meet with the pt who was to lethargic and unable to be roused for an assessment at this time. Pt is complaining of pain all over her body and she was visibly sweating profusely on her forehead and face. Pt was not speaking other than some muttered words. At this time, the pt's methadone has not been verified and she is stating that she gets 70mg/day. CARE Team will attempt for a third time to meet with the pt at a later time in the day/night.
--- NOTE | 2023-05-19 20:19 | PHA.MEDREC ---
Pharmacy Consult ? Medication Reconciliation Pharmacy has reviewed the medication reconciliation by
[2023-05-19 21:03] LABS: Appearance Urine Cloudy; Color Urine Yellow; Glucose Urine UA Negative (Negative); Leukocyte Esterase Urine Negative (Negative); Nitrite Urine Negative (Negative); Specific Gravity - Urine 1.015 (1.005-1.025); Urine Blood Negative (Negative); Urine Ketones Negative (Negative); Urine Protein Negative (Neg-Trace)
[2023-05-19 21:08] LABS: Amphetamine Screen Urine Not Detected (Not Detect); Barbiturates, Urine Not Detected (Not Detect); Benzodiazepines Screen Urine Not Detected (Not Detect); Cannabinoid Screen Urine POSITIVE (Not Detect); Cocaine Screen Urine POSITIVE (Not Detect); Fentanyl, urine POSITIVE (Not Detect); Opiate Screen Urine POSITIVE (Not Detect); Phencyclidine Screen Urine Not Detected (Not Detect)
[2023-05-19] MEDS: Acetaminophen 325 MG TABLET 975 MG PO (22:33)
[2023-05-20] MEDS: QUEtiapine Fumarate 100 MG TABLET PO ×2 (00:06→19:59)
[2023-05-20] MEDS: Gabapentin 100 MG CAPSULE PO ×4 (00:06→20:00)
[2023-05-20] MEDS: Prazosin HCL 1 MG CAPSULE PO ×2 (00:06→19:57)
[2023-05-20] MEDS: clonazePAM 1 MG TABLET PO ×3 (00:06→19:57)
[2023-05-20] MEDS: lamoTRIgine 25 MG TABLET PO ×2 (00:06→20:00)
[2023-05-20 00:13] VITALS: BP 114/63; PULSE 63; RESP 16; TEMP 36.4; O2SAT 99
--- NOTE | 2023-05-20 00:23 | PC.NURSE ---
Patient is in bed appears sleeping, compliant with medication, behavior non concerning, no distress observed/reported, VSS, labs completed/resulted, EKG completed, patient enagaged well with care team, disposition is section 12 inpatient bed search, will continue to monitor.
--- NOTE | 2023-05-20 07:03 | HE.PHANOTE ---
Methadone Maintenance Clinic Verification Form : [facility] Clinic 70 mg last dose on 05/18/23 @12:02
[2023-05-20 09:24] VITALS: BP 103/76; PULSE 97; RESP 16; TEMP 36.6; O2SAT 98
[2023-05-20] MEDS: Omeprazole 20 MG CAPSULE.DR PO (09:27)
[2023-05-20] MEDS: methADONE HCl 20 MG/2 ML ORAL.CONC 70 MG PO (09:27)
[2023-05-20] MEDS: Acetaminophen 325 MG TABLET 650 MG PO (14:38)
[2023-05-20 14:43] VITALS: RESP 18
[2023-05-20] MEDS: Cyclobenzaprine HCl 5 MG TABLET PO (15:47)
[2023-05-20] MEDS: Nicotine 14 MG PATCH.TD24 TRANSDERMA ×2 (15:48→15:49)
--- NOTE | 2023-05-20 17:05 | PC.NURSE ---
Kerry has been alternating between resting in bed and quietly sitting in the milieu this shift. She inquired multiple times about discharge after refusing to sign the CV that was offered but the section 12 was explained and Kerry was encouraged to speak with the provider on the floor tomorrow. Methadone dose verified by Gina JACOBSEN at [facility], 70mg given on 05/18 at 12:06. Kerry is complaining of body pain and Tylenol 650mg followed by cyclobenzaprine 5mg was given with moderate relief. Appetite is good and there have been no behavioral concerns noted this shift. Kerry is denying SI/HI
[2023-05-20 17:40] VITALS: BP 124/69; PULSE 90; TEMP 36.3
[2023-05-20] MEDS: hydrOXYzine HCL 25 MG TABLET PO (18:03)
[2023-05-20] MEDS: Ibuprofen 800 MG TABLET PO (19:13)
[2023-05-20] MEDS: Ondansetron ODT 8 MG TAB.RAPDIS TRANSLINGU (20:17)
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
[2023-05-21] MEDS: hydrOXYzine HCL 25 MG TABLET PO ×4 (04:51→23:34)
[2023-05-21] MEDS: Cyclobenzaprine HCl 5 MG TABLET PO ×3 (04:51→17:40)
[2023-05-21] MEDS: Ibuprofen 800 MG TABLET PO ×3 (04:52→22:33)
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
[2023-05-21 09:26] VITALS: BP 122/62; PULSE 75; RESP 16; TEMP 36.6; O2SAT 98
[2023-05-21] MEDS: methADONE HCl 20 MG/2 ML ORAL.CONC 70 MG PO (09:29)
[2023-05-21] MEDS: Gabapentin 100 MG CAPSULE PO (09:30)
[2023-05-21] MEDS: Nicotine 14 MG PATCH.TD24 TRANSDERMA (09:30)
[2023-05-21] MEDS: Omeprazole 20 MG CAPSULE.DR PO (09:30)
[2023-05-21] MEDS: clonazePAM 1 MG TABLET PO ×2 (09:30→20:30)
[2023-05-21] MEDS: Acetaminophen 325 MG TABLET 650 MG PO ×3 (11:15→23:34)
[2023-05-21] MEDS: risperiDONE 1 MG TABLET PO ×2 (13:01→20:29)
[2023-05-21] MEDS: clonazePAM 0.5 MG TABLET PO (13:01)
[2023-05-21 14:25] LABS: Estimated Average Glucose 97 mg/dL
[2023-05-21] MEDS: Gabapentin 300 MG CAPSULE PO ×2 (16:03→20:29)
[2023-05-21 20:26] VITALS: BP 122/62; PULSE 90; RESP 16; TEMP 36.4
[2023-05-21] MEDS: QUEtiapine Fumarate 100 MG TABLET PO (20:30)
[2023-05-21] MEDS: lamoTRIgine 25 MG TABLET PO (20:30)
[2023-05-21] MEDS: Nicotine Polacrilex 2 MG GUM 4 MG BUCCAL ×2 (20:35→23:36)
[2023-05-21] MEDS: Prazosin HCL 1 MG CAPSULE PO (22:34)
--- NOTE | 2023-05-21 23:27 | PC.NURSE ---
PT reports being diagnosed with Trichomonas about 3 weeks ago [place] [facility] and not completing the course of Metronidazole- would like to restart. Passed on in shift to shift.
[2023-05-21] MEDS: traZODone HCL 50 MG TABLET PO (23:34)
[2023-05-22] MEDS: Cyclobenzaprine HCl 5 MG TABLET PO ×3 (00:07→19:23)
[2023-05-22] MEDS: Ibuprofen 800 MG TABLET PO ×3 (04:07→19:22)
[2023-05-22] MEDS: Magnesium Hydrox/Alum Hydrox 30 ML ORAL.SUSP PO (04:09)
[2023-05-22] MEDS: Nicotine 14 MG PATCH.TD24 TRANSDERMA (08:33)
[2023-05-22] MEDS: Omeprazole 20 MG CAPSULE.DR PO (08:34)
[2023-05-22] MEDS: methADONE HCl 20 MG/2 ML ORAL.CONC 70 MG PO (08:34)
[2023-05-22] MEDS: risperiDONE 1 MG TABLET PO ×2 (08:34→21:15)
[2023-05-22] MEDS: clonazePAM 1 MG TABLET PO ×3 (08:34→21:15)
[2023-05-22] MEDS: Gabapentin 300 MG CAPSULE PO ×3 (08:34→21:15)
[2023-05-22] MEDS: Ondansetron ODT 8 MG TAB.RAPDIS TRANSLINGU (08:41)
[2023-05-22 09:53] VITALS: BP 110/57; PULSE 86; TEMP 36.2; O2SAT 98
[2023-05-22] MEDS: hydrOXYzine HCL 25 MG TABLET PO ×2 (11:56→23:31)
[2023-05-22] MEDS: metroNIDAZOLE 500 MG TABLET PO ×2 (11:58→19:23)
[2023-05-22] MEDS: Nicotine Polacrilex 2 MG GUM 4 MG BUCCAL ×2 (12:10→23:36)
[2023-05-22] MEDS: Ondansetron ODT 4 MG TAB.RAPDIS TRANSLINGU ×2 (12:27→23:37)
[2023-05-22] MEDS: Acetaminophen 325 MG TABLET 650 MG PO ×2 (15:23→23:29)
[2023-05-22 17:16] VITALS: BP 114/62; PULSE 87; RESP 16; TEMP 36.4; O2SAT 99
--- NOTE | 2023-05-22 18:26 | P.PNPSI_ITS ---
Subjective Subjective Date of Service: 05/22/23 Reason For Visit: Psychosis Subjective Notes: Section 12B Healthcare Proxy: No Guardianship: No Medical Problems Affecting Mental Status: No Interim History: The meds are somewhat OK, but not enough. I have severe anxiety and need better relief Reports sleep is variable Discussed feeling stuck, lost empty without control. Being single she finds a lack of support, family is not too aware or involved . Trauma history presents daily struggles she states. Identifies her goal to be stable, live a healthy life and not have the current severity of problems. States she faces eviction-asks for discharge to gather belongings. Discussed her thoughts and feelings around homelessness. Asks for funding for housing, replacing her ID, getting a cell phone and for transportation. Full med review with changes per pt request. Medication Compliance: Yes Side effects from medications: No Attending Groups: No Review of Systems Acute medical concerns: No Medical Review of Systems: unchanged Mental Status Exam Mental Status Exam Patient Appearance: Fatigued Patient Orientation: Person, Place, Time and Situation Level of Consciousness: Alert Patient Behavior: Talkative, Anxious, Resistive to Care, Avoidant and Distractible Mood Description: Withdrawn and Depressed Affect Description: Flat Patient Cognition Impaired: No Ability to Follow Directions: Fair Speech Pattern: Spontaneous Speech Memory Description: Episodic Impaired Hallucinations: None (denies, but questionable) Delusions: Paranoid Ideation Perceptual Disturbances: Depersonalization and Derealization Thought Process: Distracted and Rumination Thought Content: positive for Circumstantial, positive for Tangential, positive for Evasive and positive for Suicidal Ideation (denies) Depressive Symptoms: Increased Anxiety, Hopelessness, Increased Fatigue, Thoughts of /Suicide (denies), Low Self Esteem and Loss of Energy Judgement: Poor Diagnostics Vital Signs (24Hr): Vital Signs - 24 hr 05/21/23 20:26 05/22/23 09:53 05/22/23 17:16 Temperature 97.5 F 97.1 F 97.6 F Pulse Rate 90 86 87 Respiratory Rate 16 16 Blood Pressure 122/62 110/57 L 114/62 Pulse Oximetry 98 99 Oxygen Delivery Method Room Air Room Air BMI result Body Mass Index 25.4 Labs 05/23/23 16:34 05/23/23 16:34 Labs: Laboratory Results - last 48 hr 05/19/23 10:39 Estimat Average Glucose 97 Hemoglobin A1c % 5.0 Medications Medications Current Medications Acetaminophen (Acetaminophen 325 Mg Tablet) 650 mg PO Q6H PRN PRN Reason: Headache/Pain Mild Scale (1-3) Last Admin: 05/22/23 15:23 Dose: 650 mg Al Hydroxide/Mg Hydroxide (Magnesium Hydrox/Alum Hydrox 30 Ml Oral.Susp) 30 ml PO Q6H PRN PRN Reason: Heartburn/Nausea Last Admin: 05/22/23 04:09 Dose: 30 ml Clonazepam (Clonazepam 1 Mg Tablet) 1 mg PO TID [facility] Last Admin: 05/22/23 15:23 Dose: 1 mg Cyclobenzaprine HCl (Cyclobenzaprine Hcl 5 Mg Tablet) 5 mg PO Q6H PRN PRN Reason: muscle spasm Last Admin: 05/22/23 12:10 Dose: 5 mg Gabapentin (Gabapentin 300 Mg Capsule) 300 mg PO TID [facility] Last Admin: 05/22/23 15:23 Dose: 300 mg Hydroxyzine HCl (Hydroxyzine Hcl 25 Mg Tablet) 25 mg PO Q4H PRN PRN Reason: anxiety Ibuprofen (Ibuprofen 800 Mg Tablet) 800 mg PO Q6H PRN PRN Reason: Pain, Moderate(Pain Scale 4-6) Last Admin: 05/22/23 11:56 Dose: 800 mg Lamotrigine (Lamotrigine 25 Mg Tablet) 25 mg PO BEDTIME [facility] Last Admin: 05/21/23 20:30 Dose: 25 mg Loperamide HCl (Loperamide Hcl 2 Mg Capsule) 2 mg PO Q6H PRN PRN Reason: loose stools Magnesium Hydroxide (Milk Of Magnesia 30 Ml Oral.Susp) 30 ml PO DAILY PRN PRN Reason: Constipation Methadone HCl (Methadone Hcl 20 Mg/2 Ml Oral.Conc) 70 mg PO DAILY [facility] Last Admin: 05/22/23 08:34 Dose: 70 mg Metronidazole (Metronidazole 500 Mg Tablet) 500 mg PO Q8H [facility] Stop: 06/06/23 21:00 Last Admin: 05/22/23 11:58 Dose: 500 mg Multivitamins/Vitamin C (Multivitamin Tablet) 1 tab PO DAILY [facility] Nicotine (Nicotine 14 Mg Patch.Td24) 14 mg TRANSDERMA DAILY [facility] Last Admin: 05/22/23 08:33 Dose: 14 mg Nicotine Polacrilex (Nicotine Polacrilex 2 Mg Gum) 4 mg BUCCAL Q2H PRN PRN Reason: nicotine cravings Last Admin: 05/22/23 12:10 Dose: 4 mg Omeprazole (Omeprazole 20 Mg Capsule.Dr) 20 mg PO DAILY [facility] Last Admin: 05/22/23 08:34 Dose: 20 mg Ondansetron HCl (Ondansetron Odt 4 Mg Tab.Rapdis) 4 mg TRANSLINGU Q8H PRN PRN Reason: Nausea Prazosin HCl (Prazosin Hcl 1 Mg Capsule) 1 mg PO BEDTIME [facility]; Protocol Last Admin: 05/21/23 22:34 Dose: 1 mg Quetiapine Fumarate (Quetiapine Fumarate 100 Mg Tablet) 100 mg PO BEDTIME [facility] Last Admin: 05/21/23 20:30 Dose: 100 mg Quetiapine Fumarate (Quetiapine Fumarate 25 Mg Tablet) 25 mg PO TID PRN PRN Reason: agitation, anxiety Risperidone (Risperidone 1 Mg Tablet) 1 mg PO BID [facility] Last Admin: 05/22/23 08:34 Dose: 1 mg Thiamine HCl (Thiamine Hcl 100 Mg Tablet) 100 mg PO DAILY [facility] Trazodone HCl (Trazodone Hcl 50 Mg Tablet) 50 mg PO BEDTIME PRN PRN Reason: Insomnia Last Admin: 05/21/23 23:34 Dose: 50 mg Allergies Allergies Allergy/AdvReac Type Severity Reaction Status Date / Time No Known Allergies Allergy Verified 04/25/23 16:12 Assessment & Plan Assessment & Plan (1) Bipolar 1 disorder: Status: Acute Code(s): F31.9 - Bipolar disorder, unspecified (2) Cocaine use disorder, moderate, dependence: Status: Acute Code(s): F14.20 - Cocaine dependence, uncomplicated (3) Opioid use disorder, moderate, dependence: Status: Acute Code(s): F11.20 - Opioid dependence, uncomplicated Plan Ms. Mario is a 32 year-old woman with hx of cocaine and opioid use disorder. Pt was brought in to [facility] ED on a sect 12 by police after she was found naked on the street stating she had snake eggs inside of her. In the ED, utox positive for cocaine, cannabinoids, opioids and fentanyl. Pt continues to present with paranoid ideas and visual and auditory hallucinations. It is unclear if delusions and psychosis only in context of substance use or exacerbated by it. We discussed risks, benefits and alternative treatment options. PLAN 1. Admit to M5, Section 12b, 15 minutes checks for safety 2. start risperidone 1mg po BID 3. will continue clonazepam but consider taper off as combination of benzo with opioid use may increase risk of fatal accidental OD or risk of misuse. 4. Aftercare planning. 5. Continue methadone 05/22/23 Flagyl q8 hours-05/22-06/06. Pt reports she did not complete her course prescribed with sx present. Capsaicin/Aspercream prn pain-back, feet, legs Klonopin 1 mg tid-discussed tapering Atarax q 4 hours prn MVI daily Zofran prn decreased Seroquel 25 mg tid prn anxiety in preparation to begin klonopin tapering Patient educated on: medication risk/benefits Informed Consent: further education needed Reason for continued inpatient stay Substantial Risk for: harm to self, inability to function, rapid decompensation and med/psych decompensation Time Spent With Patient Time: Total time managing care of this patient today ____ minutes.
[2023-05-22] MEDS: QUEtiapine Fumarate 25 MG TABLET PO (19:23)
--- NOTE | 2023-05-22 20:32 | PC.NURSE ---
PT reports feeling under the weatherf, like I have the flu. I have bad body aches . Afebrile @ 98.4 Dr. Hill contacted via [employer], SARS/FLU/RSV panel ordered. Sample collected and sent to lab. Continue plan of care.
[2023-05-22] MEDS: lamoTRIgine 25 MG TABLET PO (21:15)
[2023-05-22] MEDS: QUEtiapine Fumarate 100 MG TABLET PO (21:15)
[2023-05-22 21:17] LABS: Influenza A PCR NEGATIVE (Negative); Influenza B PCR NEGATIVE (Negative); Resp Syncy Virus RNA Qual PCR NEGATIVE (Negative); SARS COV2 PCR INHOUSE NEGATIVE (Negative)
[2023-05-22] MEDS: Lidocaine 4 % Patch ADH..PATCH 1 PATCH TRANSDERMA (21:47)
[2023-05-22 21:50] VITALS: BP 136/74; PULSE 78
[2023-05-22] MEDS: Prazosin HCL 1 MG CAPSULE PO (21:55)
[2023-05-22] MEDS: traZODone HCL 50 MG TABLET PO ×2 (21:56→23:29)
[2023-05-23] MEDS: metroNIDAZOLE 500 MG TABLET PO ×3 (04:03→18:44)
[2023-05-23] MEDS: methADONE HCl 20 MG/2 ML ORAL.CONC 70 MG PO (08:25)
[2023-05-23] MEDS: clonazePAM 1 MG TABLET PO ×3 (08:26→20:49)
[2023-05-23] MEDS: Omeprazole 20 MG CAPSULE.DR PO (08:26)
[2023-05-23] MEDS: Gabapentin 300 MG CAPSULE PO ×3 (08:26→20:32)
[2023-05-23] MEDS: Multivitamin TABLET 1 TAB PO (08:26)
[2023-05-23] MEDS: Thiamine HCL 100 MG TABLET PO (08:26)
[2023-05-23] MEDS: risperiDONE 1 MG TABLET PO ×2 (08:26→20:35)
[2023-05-23] MEDS: Nicotine 14 MG PATCH.TD24 TRANSDERMA (08:30)
[2023-05-23 08:57] VITALS: BP 110/76; PULSE 89; RESP 16; TEMP 36.6; O2SAT 98
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
[2023-05-23] MEDS: Nicotine Polacrilex 2 MG GUM 4 MG BUCCAL ×2 (11:54→20:49)
[2023-05-23] MEDS: Cyclobenzaprine HCl 5 MG TABLET PO ×2 (12:21→18:45)
[2023-05-23] MEDS: Ibuprofen 800 MG TABLET PO ×2 (12:21→20:35)
[2023-05-23] MEDS: hydrOXYzine HCL 25 MG TABLET PO ×2 (12:30→18:45)
[2023-05-23] MEDS: QUEtiapine Fumarate 25 MG TABLET PO ×2 (12:30→18:44)
[2023-05-23] MEDS: Lidocaine 4 % Patch ADH..PATCH 1 PATCH TRANSDERMA ×2 (13:03→15:15)
[2023-05-23] MEDS: Acetaminophen 325 MG TABLET 650 MG PO (15:10)
[2023-05-23 16:46] LABS: Basophils Percent Auto 0.2 % (0-2); Eosinophils Absolute Auto 0.1 X10*3/uL (0.0-0.4); Eosinophils Percent Auto 2.2 % (0-4); Hematocrit 37.3 % (37.0-47.0); Hemoglobin 11.7 g/dl (12.0-16.0); Imm Gran Abs Auto 0.01 X10*3/uL (0.00-0.03); Imm Gran Pct Auto 0.2 % (0.0-0.4); Lymphocytes Absolute Auto 2.9 X10*3/uL (1.2-4.9); Lymphocytes Percent Auto 48.7 % (20-40); MANUAL DIFF FLAG SCAN; Mean Corpuscular HGB Conc 31.4 g/dl (31.0-35.0); Mean Corpuscular Hemoglobin 30.4 pg (27.0-33.0); Mean Corpuscular Volume 96.9 fL (80.0-98.0); Mean Platelet Volume 10.1 fL (9.4-12.3); Monocytes Absolute Auto 0.6 X10*3/uL (0.1-1.2); Monocytes Percent Auto 9.8 % (2-11); Neutrophils Absolute Auto 2.3 x10*3/uL (2.0-8.3); Neutrophils Percent Auto 38.9 % (45-73); Platelet Count 244 X10*3/uL (160-400); Red Blood Count 3.85 X10*6/uL (4.20-5.50); Red Cell Distribution Width 12.2 % (11.0-16.0); SCAN SMEAR FLAG 1; White Blood Count 5.9 X10*3/uL (4.8-10.8)
[2023-05-23 17:01] LABS: Alanine Aminotransferase 151 U/L (0-31); Albumin Level 3.7 g/dL (3.5-5.0); Alkaline Phosphatase 92 U/L (39-117); Anion Gap 12 (12-20); Aspartate Amino Transferase 185 U/L (5-31); Bilirubin Total 0.1 mg/dL (0.0-1.0); Blood Urea Nitrogen 15 mg/dL (9-16); Calcium 9.4 mg/dL (8.4-10.2); Carbon Dioxide 26 mmol/L (22-29); Chloride 105 mmol/L (96-108); Creatinine Clr Calc Pharmacy 94.9; Estimated Glomerular Filt Rate > 60; Glucose Random 88 mg/dL (60-115); Potassium 4.5 mmol/L (3.3-5.1); Sodium 138 mmol/L (135-145); Total Protein 6.7 g/dL (6.5-8.0)
[2023-05-23 20:28] VITALS: BP 112/57; PULSE 86; RESP 16; TEMP 36.6; O2SAT 97
[2023-05-23] MEDS: QUEtiapine Fumarate 100 MG TABLET PO (20:35)
[2023-05-23 20:43] LABS: SLIDE REVIEW VERIFIED
[2023-05-23] MEDS: lamoTRIgine 25 MG TABLET PO (20:49)
[2023-05-23] MEDS: Prazosin HCL 1 MG CAPSULE PO (20:49)
[2023-05-24] MEDS: Cyclobenzaprine HCl 5 MG TABLET PO (02:35)
[2023-05-24] MEDS: metroNIDAZOLE 500 MG TABLET PO ×3 (02:36→22:15)
[2023-05-24] MEDS: Ibuprofen 800 MG TABLET PO ×2 (02:36→12:03)
[2023-05-24] MEDS: hydrOXYzine HCL 25 MG TABLET PO ×4 (02:38→22:52)
[2023-05-24] MEDS: Acetaminophen 325 MG TABLET 650 MG PO ×3 (03:26→22:58)
[2023-05-24] MEDS: Nicotine Polacrilex 2 MG GUM 4 MG BUCCAL ×2 (03:26→22:17)
[2023-05-24] MEDS: Omeprazole 20 MG CAPSULE.DR PO (08:29)
[2023-05-24] MEDS: risperiDONE 1 MG TABLET PO (08:29)
[2023-05-24] MEDS: Thiamine HCL 100 MG TABLET PO (08:29)
[2023-05-24] MEDS: Gabapentin 300 MG CAPSULE PO ×2 (08:29→14:15)
[2023-05-24] MEDS: Multivitamin TABLET 1 TAB PO (08:29)
[2023-05-24 08:54] VITALS: BP 127/60; PULSE 81; RESP 16; TEMP 36.2; O2SAT 99
[2023-05-24 09:12] LABS: Lamotrigine Lamictal <0.5 mcg/mL (2.5-15.0)
[2023-05-24] MEDS: Lidocaine 4 % Patch ADH..PATCH 1 PATCH TRANSDERMA (12:03)
[2023-05-24] MEDS: clonazePAM 0.5 MG TABLET PO (12:25)
--- NOTE | 2023-05-24 13:11 | MHC.CLN ---
NUTRITION SUPPLEMENT CHANGED FROM ENSURE TID TO ENSURE MAX TID DUE TO SUPPLY ISSUES. ENSURE MAX TID PROVIDES 450 KCALS, 90 G PROTEIN.
[2023-05-24] MEDS: clonazePAM 1 MG TABLET PO (15:19)
[2023-05-24] MEDS: methADONE HCl 20 MG/2 ML ORAL.CONC 70 MG PO (15:19)
[2023-05-24] MEDS: Nicotine 14 MG PATCH.TD24 TRANSDERMA (15:25)
--- NOTE | 2023-05-24 16:12 | HO.PSYCHPN ---
Subjective Subjective Date of Service: 05/24/23 Reason For Visit: Psychosis Subjective Notes: Section 7 and Section 12B Healthcare Proxy: No Guardianship: No Medical Problems Affecting Mental Status: No Interim History: Pt with excess sedation. Attempted to discuss signing in via CV. She was unable to do this.As a result, section VII filed. Medications decreased, Seroquel, Risperdal. Klonopin changes to prn. Met with pt, Florencio BARTON, Demetria Rashid to discuss Section 7. Pt expressed anger. She was alert yet withdrawn, hostile, not forthcoming, accusatory, paranoid in presentation. Discussed rationale and what would be needed for a safe discharge. Focus of pt was on Klonopin use and not having this changed. She remains guarded. She did express interest in application for [facility] services and will allow application to be made. She hopes to improve and discharge by 05/26. Reports not feeling well, with URI sx. Medication Compliance: Yes Side effects from medications: Yes (sedation) Attending Groups: No Review of Systems Acute medical concerns: No Medical Review of Systems: unchanged Mental Status Exam Mental Status Exam Patient Appearance: Fatigued Patient Orientation: Person, Place, Time and Situation Level of Consciousness: Alert Patient Behavior: Talkative, Anxious, Resistive to Care, Avoidant and Distractible Mood Description: Withdrawn, Depressed, Hostile and Angry Affect Description: Flat Patient Cognition Impaired: No Ability to Follow Directions: Fair Speech Pattern: Spontaneous Speech Memory Description: Episodic Impaired Hallucinations: None (denies, but questionable) Delusions: Being Controlled, Paranoid Ideation and Present Perceptual Disturbances: Depersonalization and Derealization Thought Process: Distracted and Rumination Thought Content: positive for Circumstantial, positive for Tangential, positive for Evasive and positive for Suicidal Ideation (denies) Depressive Symptoms: Increased Anxiety, Diff. Making Decisions, Increased Irritability, Sleeping More Than Usual, Loss of Int. in Activity, Feelings of Worthlessness, Hopelessness, Unhappiness, Increased Fatigue, Thoughts of /Suicide (denies), Low Self Esteem, Loss of Energy and Difficulty Concentrating Judgement: Poor Diagnostics Vital Signs (24Hr): Vital Signs - 24 hr 05/23/23 20:28 05/24/23 08:54 Temperature 97.8 F 97.2 F Pulse Rate 86 81 Respiratory Rate 16 16 Blood Pressure 112/57 L 127/60 Pulse Oximetry 97 99 Oxygen Delivery Method Room Air Room Air BMI result Body Mass Index 25.4 Labs 05/23/23 16:34 05/23/23 16:34 Labs: Laboratory Results - last 48 hr 05/19/23 05/22/23 05/23/23 10:39 20:10 16:34 WBC 5.9 RBC 3.85 L Hgb 11.7 L Hct 37.3 MCV 96.9 MCH 30.4 MCHC 31.4 RDW 12.2 Plt Count 244 D MPV 10.1 Immature Gran % (Auto) 0.2 Neut % (Auto) 38.9 L Lymph % (Auto) 48.7 H Glasscock % (Auto) 9.8 Eos % (Auto) 2.2 Baso % (Auto) 0.2 Lymph # (Auto) 2.9 Glasscock # (Auto) 0.6 Eos # (Auto) 0.1 Baso # (Auto) 0.0 Abs Immat Gran (auto) 0.01 Absolute Neuts (auto) 2.3 Absolute Nucleated RBC 0.000 Nucleated RBC % (auto) 0.0 Smear Tech's Comments VERIFIED Sodium 138 Potassium 4.5 Chloride 105 Carbon Dioxide 26 Anion Gap 12 BUN 15 Creatinine 0.69 Estim Creat Clear Calc 94.9 Estimated GFR > 60 Random Glucose 88 Calcium 9.4 Total Bilirubin 0.1 AST 185 H ALT 151 H Alkaline Phosphatase 92 Total Protein 6.7 Albumin 3.7 Lamotrigine <0.5 L Influenza Type A (PCR) NEGATIVE Influenza Type B (PCR) NEGATIVE RSV RNA Qual (PCR) NEGATIVE SARS-CoV-2 RNA (RT-PCR) NEGATIVE Medications Medications Current Medications Acetaminophen (Acetaminophen 325 Mg Tablet) 650 mg PO Q6H PRN PRN Reason: Headache/Pain Mild Scale (1-3) Last Admin: 05/24/23 15:25 Dose: 650 mg Al Hydroxide/Mg Hydroxide (Magnesium Hydrox/Alum Hydrox 30 Ml Oral.Susp) 30 ml PO Q6H PRN PRN Reason: Heartburn/Nausea Last Admin: 05/22/23 04:09 Dose: 30 ml Capsaicin (Capsaicin 0.025% Cream 60 Gm Tube) 1 appl TOPICAL TID PRN; Protocol PRN Reason: back, legs, foot pain Clonazepam (Clonazepam 1 Mg Tablet) 1 mg PO TID [facility] Last Admin: 05/24/23 15:19 Dose: 1 mg Gabapentin (Gabapentin 300 Mg Capsule) 300 mg PO TID [facility] Last Admin: 05/24/23 14:15 Dose: 300 mg Hydroxyzine HCl (Hydroxyzine Hcl 25 Mg Tablet) 25 mg PO Q4H PRN PRN Reason: anxiety Last Admin: 05/24/23 06:43 Dose: 25 mg Ibuprofen (Ibuprofen 800 Mg Tablet) 800 mg PO Q6H PRN PRN Reason: Pain, Moderate(Pain Scale 4-6) Last Admin: 05/24/23 12:03 Dose: 800 mg Lamotrigine (Lamotrigine 25 Mg Tablet) 25 mg PO BEDTIME [facility] Last Admin: 05/23/23 20:49 Dose: 25 mg Lidocaine (Lidocaine 4 % Patch Adh..Patch) 1 patch TRANSDERMA DAILY PRN; Protocol PRN Reason: back pain Last Admin: 05/24/23 12:03 Dose: 1 patch Loperamide HCl (Loperamide Hcl 2 Mg Capsule) 2 mg PO Q6H PRN PRN Reason: loose stools Magnesium Hydroxide (Milk Of Magnesia 30 Ml Oral.Susp) 30 ml PO DAILY PRN PRN Reason: Constipation Methadone HCl (Methadone Hcl 20 Mg/2 Ml Oral.Conc) 70 mg PO DAILY [facility] Last Admin: 05/24/23 15:19 Dose: 70 mg Metronidazole (Metronidazole 500 Mg Tablet) 500 mg PO Q8H [facility] Stop: 06/06/23 21:00 Last Admin: 05/24/23 11:54 Dose: 500 mg Multivitamins/Vitamin C (Multivitamin Tablet) 1 tab PO DAILY [facility] Last Admin: 05/24/23 08:29 Dose: 1 tab Nicotine (Nicotine 14 Mg Patch.Td24) 14 mg TRANSDERMA DAILY [facility] Last Admin: 05/24/23 15:25 Dose: 14 mg Nicotine Polacrilex (Nicotine Polacrilex 2 Mg Gum) 4 mg BUCCAL Q2H PRN PRN Reason: nicotine cravings Last Admin: 05/24/23 03:26 Dose: 4 mg Pt Own Med Align Probiotic Womens Dual Action 1 cap PO DAILY [facility] Last Admin: 05/24/23 08:29 Dose: 1 cap Omeprazole (Omeprazole 20 Mg Capsule.Dr) 20 mg PO DAILY [facility] Last Admin: 05/24/23 08:29 Dose: 20 mg Ondansetron HCl (Ondansetron Odt 4 Mg Tab.Rapdis) 4 mg TRANSLINGU Q8H PRN PRN Reason: Nausea Last Admin: 05/22/23 23:37 Dose: 4 mg Prazosin HCl (Prazosin Hcl 1 Mg Capsule) 1 mg PO BEDTIME [facility]; Protocol Last Admin: 05/23/23 20:49 Dose: 1 mg Quetiapine Fumarate (Quetiapine Fumarate 25 Mg Tablet) 25 mg PO TID PRN PRN Reason: agitation, anxiety Last Admin: 05/23/23 18:44 Dose: 25 mg Quetiapine Fumarate (Quetiapine Fumarate 50 Mg Tablet) 50 mg PO BEDTIME [facility] Risperidone (Risperidone 0.5 Mg Tablet) 0.5 mg PO BID [facility] Thiamine HCl (Thiamine Hcl 100 Mg Tablet) 100 mg PO DAILY [facility] Last Admin: 05/24/23 08:29 Dose: 100 mg Trazodone HCl (Trazodone Hcl 50 Mg Tablet) 50 mg PO BEDTIME PRN PRN Reason: Insomnia Last Admin: 05/22/23 23:29 Dose: 50 mg Trolamine Salicylate (Trolamine Salicylate 10 % Cream 85 Gm Tube) 1 appl TOPICAL TID PRN; Protocol PRN Reason: back, legs, feet Allergies Allergies Allergy/AdvReac Type Severity Reaction Status Date / Time No Known Allergies Allergy Verified 04/25/23 16:12 Assessment & Plan Assessment & Plan (1) Bipolar 1 disorder: Status: Acute Code(s): F31.9 - Bipolar disorder, unspecified (2) Cocaine use disorder, moderate, dependence: Status: Acute Code(s): F14.20 - Cocaine dependence, uncomplicated (3) Opioid use disorder, moderate, dependence: Status: Acute Code(s): F11.20 - Opioid dependence, uncomplicated Plan Ms. Mario is a 32 year-old woman with hx of cocaine and opioid use disorder. Pt was brought in to [facility] ED on a sect 12 by police after she was found naked on the street stating she had snake eggs inside of her. In the ED, utox positive for cocaine, cannabinoids, opioids and fentanyl. Pt continues to present with paranoid ideas and visual and auditory hallucinations. It is unclear if delusions and psychosis only in context of substance use or exacerbated by it. We discussed risks, benefits and alternative treatment options. PLAN 1. Admit to M5, Section 12b, 15 minutes checks for safety 2. start risperidone 1mg po BID 3. will continue clonazepam but consider taper off as combination of benzo with opioid use may increase risk of fatal accidental OD or risk of misuse. 4. Aftercare planning. 5. Continue methadone 05/24/23 Decrease Risperdal/Seroquel by 50% d/t sedation. Change Klonopin to prn Patient educated on: medication risk/benefits and therapeutic strategies Informed Consent: further education needed Reason for continued inpatient stay Substantial Risk for: rapid decompensation Time Spent With Patient Time: Total time managing care of this patient today ____ minutes.
[2023-05-24] MEDS: QUEtiapine Fumarate 25 MG TABLET PO (16:56)
[2023-05-24 20:40] VITALS: BP 116/77; PULSE 89; TEMP 36; O2SAT 99
--- NOTE | 2023-05-24 20:42 | P.EN_ITS ---
Event Note Date of Service: 05/24/23 Event Note: Pt with extensive substance use hx with opioid and fentanyl. Pt on methadone 70mg po daily. 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 Upon review of medications- clonazepam has been increased to 1 mg po TID in addition to pt receiving an additional clonazepam 0.5mg po exacerbating even more sedation and altered mental status (pt received a total of 3.5mg po clonazepam today). Consider not discharging this patient on clonazepam as she continues to work on opioid use disorder. clonazepam lowered to 0.5mg po BID prn- serious consideration to taper off before pt is discharge given high risk of accidental OD in combination of opioid use. Time Spent With Patient Time: Total time managing care of this patient today ____ minutes.
[2023-05-24 21:29] LABS: Amphetamine Screen Urine Not Detected (Not Detect); Barbiturates, Urine Not Detected (Not Detect); Benzodiazepines Screen Urine Not Detected (Not Detect); Cannabinoid Screen Urine Not Detected (Not Detect); Cocaine Screen Urine Not Detected (Not Detect); Fentanyl, urine POSITIVE (Not Detect); Opiate Screen Urine Not Detected (Not Detect); Phencyclidine Screen Urine Not Detected (Not Detect)
[2023-05-24] MEDS: Prazosin HCL 1 MG CAPSULE PO (22:51)
[2023-05-24] MEDS: risperiDONE 0.5 MG TABLET PO (22:51)
[2023-05-24] MEDS: lamoTRIgine 25 MG TABLET PO (22:52)
[2023-05-24] MEDS: QUEtiapine Fumarate 50 MG TABLET PO (22:52)
[2023-05-24] MEDS: Ondansetron ODT 4 MG TAB.RAPDIS TRANSLINGU (22:58)
[2023-05-24] MEDS: Capsaicin 0.025% Cream 60 GM TUBE 1 APPL TOPICAL (23:09)
[2023-05-25] MEDS: Ibuprofen 800 MG TABLET PO ×3 (02:16→22:20)
[2023-05-25] MEDS: clonazePAM 0.5 MG TABLET PO ×2 (02:18→14:17)
[2023-05-25] MEDS: hydrOXYzine HCL 25 MG TABLET PO (02:18)
[2023-05-25] MEDS: metroNIDAZOLE 500 MG TABLET PO ×3 (06:23→22:20)
[2023-05-25 07:00] VITALS: BMI 24.9
[2023-05-25 08:05] VITALS: BP 106/71; PULSE 98; RESP 16; TEMP 35.9; O2SAT 100
[2023-05-25] MEDS: Multivitamin TABLET 1 TAB PO (09:13)
[2023-05-25] MEDS: risperiDONE 0.5 MG TABLET PO (09:13)
[2023-05-25] MEDS: Nicotine 14 MG PATCH.TD24 TRANSDERMA (09:13)
[2023-05-25] MEDS: Omeprazole 20 MG CAPSULE.DR PO (09:13)
[2023-05-25] MEDS: Thiamine HCL 100 MG TABLET PO (09:13)
[2023-05-25] MEDS: methADONE HCl 20 MG/2 ML ORAL.CONC 70 MG PO (09:16)
[2023-05-25] MEDS: Nicotine Polacrilex 2 MG GUM 4 MG BUCCAL (14:17)
--- NOTE | 2023-05-25 15:53 | HO.PSYCHPN ---
Subjective Subjective Date of Service: 05/25/23 Reason For Visit: Psychosis Subjective Notes: Section 7 Healthcare Proxy: No Guardianship: No Medical Problems Affecting Mental Status: No Interim History: Improved with medication tapering, however pt remains focused on med seeking, especially with Klonopin, Flexeril, pain medications. Pt believes she may lose housing. Discussed possible options which she will consider. Asking about discharge. Pt is clearing, non sedate, presents without SI/HI/AH,VH/Leonie/Psychosis. Discussed progress and concerns for safety which prompted filing of Section 7. Pt encouraged to continue to work in milieu and with team on discharge planning. Medication Compliance: Yes Side effects from medications: No Attending Groups: Intermittent Review of Systems Acute medical concerns: No Medical Review of Systems: unchanged Mental Status Exam Mental Status Exam Patient Appearance: Appropriate Patient Orientation: Person, Place, Time and Situation Level of Consciousness: Alert Patient Behavior: Talkative, Anxious, Resistive to Care and Distractible Mood Description: Withdrawn and Depressed Affect Description: Flat Patient Cognition Impaired: No Ability to Follow Directions: Fair Speech Pattern: Spontaneous Speech Memory Description: Episodic Impaired Hallucinations: None (denies, but questionable) Perceptual Disturbances: Depersonalization and Derealization Thought Process: Distracted and Rumination Thought Content: positive for Circumstantial, positive for Tangential, positive for Evasive and positive for Suicidal Ideation (denies) Depressive Symptoms: Increased Anxiety, Feelings of Worthlessness, Unhappiness, Thoughts of /Suicide (denies) and Low Self Esteem Judgement: Fair Diagnostics Vital Signs (24Hr): Vital Signs - 24 hr 05/24/23 20:40 05/25/23 08:05 Temperature 96.8 F 96.7 F L Pulse Rate 89 98 Respiratory Rate 16 Blood Pressure 116/77 106/71 Pulse Oximetry 99 100 Oxygen Delivery Method Room Air Room Air BMI result Body Mass Index 24.9 Labs 05/23/23 16:34 05/23/23 16:34 Labs: Laboratory Results - last 48 hr 05/19/23 05/23/23 05/24/23 10:39 16:34 21:00 WBC 5.9 RBC 3.85 L Hgb 11.7 L Hct 37.3 MCV 96.9 MCH 30.4 MCHC 31.4 RDW 12.2 Plt Count 244 D MPV 10.1 Immature Gran % (Auto) 0.2 Neut % (Auto) 38.9 L Lymph % (Auto) 48.7 H [place] % (Auto) 9.8 Eos % (Auto) 2.2 Baso % (Auto) 0.2 Lymph # (Auto) 2.9 [place] # (Auto) 0.6 Eos # (Auto) 0.1 Baso # (Auto) 0.0 Abs Immat Gran (auto) 0.01 Absolute Neuts (auto) 2.3 Absolute Nucleated RBC 0.000 Nucleated RBC % (auto) 0.0 Smear Tech's Comments VERIFIED Sodium 138 Potassium 4.5 Chloride 105 Carbon Dioxide 26 Anion Gap 12 BUN 15 Creatinine 0.69 Estim Creat Clear Calc 94.9 Estimated GFR > 60 Random Glucose 88 Calcium 9.4 Total Bilirubin 0.1 AST 185 H ALT 151 H Alkaline Phosphatase 92 Total Protein 6.7 Albumin 3.7 Urine Opiates Screen Not Detected Urine Fentanyl Screen POSITIVE H Ur Barbiturates Screen Not Detected Lamotrigine <0.5 L Ur Phencyclidine Scrn Not Detected Ur Amphetamines Screen Not Detected U Benzodiazepines Scrn Not Detected Urine Cocaine Screen Not Detected U Marijuana (THC) Screen Not Detected Medications Medications Current Medications Acetaminophen (Acetaminophen 325 Mg Tablet) 650 mg PO Q6H PRN PRN Reason: Headache/Pain Mild Scale (1-3) Last Admin: 05/25/23 09:25 Dose: 650 mg Al Hydroxide/Mg Hydroxide (Magnesium Hydrox/Alum Hydrox 30 Ml Oral.Susp) 30 ml PO Q6H PRN PRN Reason: Heartburn/Nausea Last Admin: 05/22/23 04:09 Dose: 30 ml Clonazepam (Clonazepam 0.5 Mg Tablet) 0.5 mg PO BID PRN PRN Reason: anxiety Last Admin: 05/25/23 14:17 Dose: 0.5 mg Gabapentin (Gabapentin 300 Mg Capsule) 300 mg PO TID YOSHI Last Admin: 05/24/23 22:54 Dose: Not Given Hydroxyzine HCl (Hydroxyzine Hcl 25 Mg Tablet) 25 mg PO Q4H PRN PRN Reason: anxiety Last Admin: 05/25/23 12:50 Dose: 25 mg Ibuprofen (Ibuprofen 800 Mg Tablet) 800 mg PO Q6H PRN PRN Reason: Pain, Moderate(Pain Scale 4-6) Last Admin: 05/25/23 12:50 Dose: 800 mg Lamotrigine (Lamotrigine 25 Mg Tablet) 25 mg PO BEDTIME YOSHI Last Admin: 05/24/23 22:52 Dose: 25 mg Lidocaine (Lidocaine 4 % Patch Adh..Patch) 2 patch TRANSDERMA DAILY PRN; Protocol PRN Reason: back pain Last Admin: 05/25/23 14:19 Dose: 2 patch Loperamide HCl (Loperamide Hcl 2 Mg Capsule) 2 mg PO Q6H PRN PRN Reason: loose stools Magnesium Hydroxide (Milk Of Magnesia 30 Ml Oral.Susp) 30 ml PO DAILY PRN PRN Reason: Constipation Methadone HCl (Methadone Hcl 20 Mg/2 Ml Oral.Conc) 70 mg PO DAILY [facility] Last Admin: 05/25/23 09:16 Dose: 70 mg Metronidazole (Metronidazole 500 Mg Tablet) 500 mg PO Q8H YOSHI Stop: 06/06/23 23:00 Last Admin: 05/25/23 14:17 Dose: 500 mg Multivitamins/Vitamin C (Multivitamin Tablet) 1 tab PO DAILY [facility] Last Admin: 05/25/23 09:13 Dose: 1 tab Nicotine (Nicotine 14 Mg Patch.Td24) 14 mg TRANSDERMA DAILY [facility] Last Admin: 05/25/23 09:13 Dose: 14 mg Nicotine Polacrilex (Nicotine Polacrilex 2 Mg Gum) 4 mg BUCCAL Q2H PRN PRN Reason: nicotine cravings Last Admin: 05/25/23 14:17 Dose: 4 mg Pt Own Med Align Probiotic Womens Dual Action 1 cap PO DAILY [facility] Last Admin: 05/25/23 09:17 Dose: 1 cap Omeprazole (Omeprazole 20 Mg Capsule.Dr) 20 mg PO DAILY [facility] Last Admin: 05/25/23 09:13 Dose: 20 mg Ondansetron HCl (Ondansetron Odt 4 Mg Tab.Rapdis) 4 mg TRANSLINGU Q8H PRN PRN Reason: Nausea Last Admin: 05/24/23 22:58 Dose: 4 mg Prazosin HCl (Prazosin Hcl 1 Mg Capsule) 1 mg PO BEDTIME YOSHI; Protocol Last Admin: 05/24/23 22:51 Dose: 1 mg Quetiapine Fumarate (Quetiapine Fumarate 25 Mg Tablet) 25 mg PO TID PRN PRN Reason: agitation, anxiety Last Admin: 05/24/23 16:56 Dose: 25 mg Quetiapine Fumarate (Quetiapine Fumarate 50 Mg Tablet) 50 mg PO BEDTIME YOSHI Last Admin: 05/24/23 22:52 Dose: 50 mg Risperidone (Risperidone 0.5 Mg Tablet) 0.5 mg PO BID [facility] Last Admin: 05/25/23 09:13 Dose: 0.5 mg Thiamine HCl (Thiamine Hcl 100 Mg Tablet) 100 mg PO DAILY [facility] Last Admin: 05/25/23 09:13 Dose: 100 mg Trazodone HCl (Trazodone Hcl 50 Mg Tablet) 50 mg PO BEDTIME PRN PRN Reason: Insomnia Last Admin: 05/22/23 23:29 Dose: 50 mg Trolamine Salicylate (Trolamine Salicylate 10 % Cream 85 Gm Tube) 1 appl TOPICAL TID PRN; Protocol PRN Reason: back, legs, feet Allergies Allergies Allergy/AdvReac Type Severity Reaction Status Date / Time capsaicin Allergy Rash Verified 05/25/23 02:08 Assessment & Plan Assessment & Plan (1) Bipolar 1 disorder: Status: Acute Code(s): F31.9 - Bipolar disorder, unspecified (2) Cocaine use disorder, moderate, dependence: Status: Acute Code(s): F14.20 - Cocaine dependence, uncomplicated (3) Opioid use disorder, moderate, dependence: Status: Acute Code(s): F11.20 - Opioid dependence, uncomplicated Plan Ms. Mario is a 32 year-old woman with hx of cocaine and opioid use disorder. Pt was brought in to [facility] on a sect 12 by police after she was found naked on the street stating she had snake eggs inside of her. In the ED, utox positive for cocaine, cannabinoids, opioids and fentanyl. Pt continues to present with paranoid ideas and visual and auditory hallucinations. It is unclear if delusions and psychosis only in context of substance use or exacerbated by it. We discussed risks, benefits and alternative treatment options. PLAN 1. Admit to M5, Section 12b, 15 minutes checks for safety 2. start risperidone 1mg po BID 3. will continue clonazepam but consider taper off as combination of benzo with opioid use may increase risk of fatal accidental OD or risk of misuse. 4. Aftercare planning. 5. Continue methadone 05/24/23 Decrease Risperdal/Seroquel by 50% d/t sedation. Change Klonopin to prn 05/25 Continue current regime/plan Patient educated on: medication risk/benefits Informed Consent: understands Reason for continued inpatient stay Substantial Risk for: rapid decompensation Time Spent With Patient Time: Total time managing care of this patient today ____ minutes.
[2023-05-25] MEDS: Ondansetron ODT 4 MG TAB.RAPDIS TRANSLINGU (17:52)
[2023-05-25 20:50] VITALS: BP 130/67; PULSE 92; TEMP 36.4
[2023-05-25] MEDS: lamoTRIgine 25 MG TABLET PO (22:20)
[2023-05-25] MEDS: Prazosin HCL 1 MG CAPSULE PO (22:21)
[2023-05-26] MEDS: metroNIDAZOLE 500 MG TABLET PO (06:39)
[2023-05-26] MEDS: Ibuprofen 800 MG TABLET PO ×4 (06:42→23:41)
[2023-05-26 08:30] VITALS: BP 102/58; PULSE 84; RESP 16; TEMP 36.1; O2SAT 97
[2023-05-26] MEDS: methADONE HCl 20 MG/2 ML ORAL.CONC 70 MG PO (08:40)
--- NOTE | 2023-05-26 11:26 | HO.PSYCHPN ---
Subjective Subjective Date of Service: 05/26/23 Reason For Visit: Psychosis Subjective Notes: Section 7 Healthcare Proxy: No Guardianship: No Medical Problems Affecting Mental Status: No Interim History: Met with pt and ORALIA Arceo. Pt, at this time is willing to look at treatment options, but will decide once discharged. She is alert, oriented, without sedation, denies SI/HI, continues to be med seeking, is without psychosis. She presents with great concern and shame regarding this admission and precipitants and is wanting her privacy secured. She will discharge on 05/27/23. Medication Compliance: Yes Side effects from medications: No Attending Groups: Intermittent Review of Systems Acute medical concerns: No Medical Review of Systems: unchanged Mental Status Exam Mental Status Exam Patient Appearance: Appropriate Patient Orientation: Person, Place, Time and Situation Level of Consciousness: Alert Patient Behavior: Talkative, Anxious and Distractible Mood Description: Apprehensive Affect Description: Flat Patient Cognition Impaired: No Ability to Follow Directions: Fair Speech Pattern: Spontaneous Speech Memory Description: Episodic Impaired Hallucinations: None (denies, but questionable) Delusions: Not Present Thought Process: Rumination Thought Content: positive for Circumstantial, positive for Evasive and positive for Suicidal Ideation (denies) Depressive Symptoms: Increased Anxiety, Feelings of Worthlessness, Unhappiness, Thoughts of /Suicide (denies) and Low Self Esteem Judgement: Good Diagnostics Vital Signs (24Hr): Vital Signs - 24 hr 05/25/23 20:50 05/26/23 08:30 Temperature 97.5 F 97.0 F Pulse Rate 92 84 Respiratory Rate 16 Blood Pressure 130/67 102/58 L Pulse Oximetry 97 Oxygen Delivery Method Room Air BMI result Body Mass Index 24.9 Labs 05/23/23 16:34 05/23/23 16:34 Labs: Laboratory Results - last 48 hr 05/24/23 21:00 Urine Opiates Screen Not Detected Urine Fentanyl Screen POSITIVE H Ur Barbiturates Screen Not Detected Ur Phencyclidine Scrn Not Detected Ur Amphetamines Screen Not Detected U Benzodiazepines Scrn Not Detected Urine Cocaine Screen Not Detected U Marijuana (THC) Screen Not Detected Medications Medications Current Medications Acetaminophen (Acetaminophen 325 Mg Tablet) 650 mg PO Q6H PRN PRN Reason: Headache/Pain Mild Scale (1-3) Last Admin: 05/26/23 08:37 Dose: 650 mg Al Hydroxide/Mg Hydroxide (Magnesium Hydrox/Alum Hydrox 30 Ml Oral.Susp) 30 ml PO Q6H PRN PRN Reason: Heartburn/Nausea Last Admin: 05/22/23 04:09 Dose: 30 ml Clonazepam (Clonazepam 0.5 Mg Tablet) 0.5 mg PO TID PRN PRN Reason: anxiety Gabapentin (Gabapentin 100 Mg Capsule) 100 mg PO TID [facility] Hydroxyzine HCl (Hydroxyzine Hcl 25 Mg Tablet) 25 mg PO Q4H PRN PRN Reason: anxiety Last Admin: 05/26/23 00:43 Dose: 25 mg Ibuprofen (Ibuprofen 800 Mg Tablet) 800 mg PO Q6H PRN PRN Reason: Pain, Moderate(Pain Scale 4-6) Last Admin: 05/26/23 08:40 Dose: 800 mg Lamotrigine (Lamotrigine 25 Mg Tablet) 25 mg PO BEDTIME [facility] Last Admin: 05/25/23 22:20 Dose: 25 mg Lidocaine (Lidocaine 4 % Patch Adh..Patch) 2 patch TRANSDERMA DAILY PRN; Protocol PRN Reason: back pain Last Admin: 05/25/23 14:19 Dose: 2 patch Loperamide HCl (Loperamide Hcl 2 Mg Capsule) 2 mg PO Q6H PRN PRN Reason: loose stools Magnesium Hydroxide (Milk Of Magnesia 30 Ml Oral.Susp) 30 ml PO DAILY PRN PRN Reason: Constipation Methadone HCl (Methadone Hcl 20 Mg/2 Ml Oral.Conc) 70 mg PO DAILY [facility] Last Admin: 05/26/23 08:40 Dose: 70 mg Metronidazole (Metronidazole 500 Mg Tablet) 500 mg PO Q8H [facility] Stop: 06/06/23 23:00 Last Admin: 05/26/23 06:39 Dose: 500 mg Multivitamins/Vitamin C (Multivitamin Tablet) 1 tab PO DAILY [facility] Last Admin: 05/26/23 08:40 Dose: 1 tab Nicotine (Nicotine 14 Mg Patch.Td24) 14 mg TRANSDERMA DAILY [facility] Last Admin: 05/26/23 08:41 Dose: 14 mg Nicotine Polacrilex (Nicotine Polacrilex 2 Mg Gum) 4 mg BUCCAL Q2H PRN PRN Reason: nicotine cravings Last Admin: 05/25/23 20:21 Dose: 4 mg Pt Own Med Align Probiotic Womens Dual Action 1 cap PO DAILY [facility] Last Admin: 05/26/23 10:23 Dose: Not Given Omeprazole (Omeprazole 20 Mg Capsule.Dr) 20 mg PO DAILY [facility] Last Admin: 05/26/23 08:40 Dose: 20 mg Ondansetron HCl (Ondansetron Odt 4 Mg Tab.Rapdis) 4 mg TRANSLINGU Q8H PRN PRN Reason: Nausea Last Admin: 05/25/23 17:52 Dose: 4 mg Prazosin HCl (Prazosin Hcl 1 Mg Capsule) 1 mg PO BEDTIME YOSHI; Protocol Last Admin: 05/25/23 22:21 Dose: 1 mg Quetiapine Fumarate (Quetiapine Fumarate 25 Mg Tablet) 25 mg PO TID PRN PRN Reason: agitation, anxiety Last Admin: 05/25/23 17:51 Dose: 25 mg Quetiapine Fumarate (Quetiapine Fumarate 50 Mg Tablet) 50 mg PO BEDTIME YOSHI Last Admin: 05/25/23 22:20 Dose: 50 mg Risperidone (Risperidone 0.5 Mg Tablet) 0.5 mg PO BID YOSHI Last Admin: 05/26/23 08:40 Dose: 0.5 mg Thiamine HCl (Thiamine Hcl 100 Mg Tablet) 100 mg PO DAILY [facility] Last Admin: 05/26/23 08:40 Dose: 100 mg Trazodone HCl (Trazodone Hcl 50 Mg Tablet) 50 mg PO BEDTIME PRN PRN Reason: Insomnia Last Admin: 05/22/23 23:29 Dose: 50 mg Trolamine Salicylate (Trolamine Salicylate 10 % Cream 85 Gm Tube) 1 appl TOPICAL TID PRN; Protocol PRN Reason: back, legs, feet Allergies Allergies Allergy/AdvReac Type Severity Reaction Status Date / Time capsaicin Allergy Rash Verified 05/25/23 02:08 Assessment & Plan Assessment & Plan (1) Bipolar 1 disorder: Status: Acute Code(s): F31.9 - Bipolar disorder, unspecified (2) Cocaine use disorder, moderate, dependence: Status: Acute Code(s): F14.20 - Cocaine dependence, uncomplicated (3) Opioid use disorder, moderate, dependence: Status: Acute Code(s): F11.20 - Opioid dependence, uncomplicated Plan Ms. Mario is a 32 year-old woman with hx of cocaine and opioid use disorder. Pt was brought in to [facility] on a sect 12 by police after she was found naked on the street stating she had snake eggs inside of her. In the ED, utox positive for cocaine, cannabinoids, opioids and fentanyl. Pt continues to present with paranoid ideas and visual and auditory hallucinations. It is unclear if delusions and psychosis only in context of substance use or exacerbated by it. We discussed risks, benefits and alternative treatment options. PLAN 1. Admit to M5, Section 12b, 15 minutes checks for safety 2. start risperidone 1mg po BID 3. will continue clonazepam but consider taper off as combination of benzo with opioid use may increase risk of fatal accidental OD or risk of misuse. 4. Aftercare planning. 5. Continue methadone 05/24/23 Decrease Risperdal/Seroquel by 50% d/t sedation. Change Klonopin to prn 05/26/23 Discharge 05/27/23 Patient educated on: medication risk/benefits and therapeutic strategies Informed Consent: understands Reason for continued inpatient stay Substantial Risk for: rapid decompensation Time Spent With Patient Time: Total time managing care of this patient today ____ minutes.
[2023-05-26] MEDS: Ondansetron ODT 4 MG TAB.RAPDIS TRANSLINGU ×2 (13:08→21:03)
[2023-05-26 18:00] VITALS: BP 118/68; PULSE 86; RESP 16; TEMP 36.1; O2SAT 98
[2023-05-26] MEDS: Prazosin HCL 1 MG CAPSULE PO (20:32)
[2023-05-26] MEDS: lamoTRIgine 25 MG TABLET PO (20:32)
[2023-05-26] MEDS: traZODone HCL 50 MG TABLET PO (23:41)
[2023-05-27 06:00] VITALS: BP 100/53; PULSE 92; RESP 16; TEMP 36.4; O2SAT 98
[2023-05-27] MEDS: Ibuprofen 800 MG TABLET PO (06:18)
[2023-05-27] MEDS: methADONE HCl 20 MG/2 ML ORAL.CONC 70 MG PO (08:52)
[2023-05-27] MEDS: Ondansetron ODT 4 MG TAB.RAPDIS TRANSLINGU (10:46)
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
== END 2023-05-27 11:55 | disposition home or self-care (01) | DRG 885 ==
LOC: HO.ED 04:33 → HO.PM5 05-20 16:06
PROVIDERS: Psychiatry & Neurology Psychiatry; Social Worker; Admitting Provider Psychiatry & Neurology Psychiatry; Emergency Provider Emergency Medicine; Visit Provider Clinical Nurse Specialist Psychiatric/Mental Health, Adult
DX: F31.9 Bipolar disorder, unspecified (principal); F11.20 Opioid dependence, uncomplicated; F14.20 Cocaine dependence, uncomplicated; F17.210 Nicotine dependence, cigarettes, uncomplicated; Z71.6 Tobacco abuse counseling; Z20.822 Contact with and (suspected) exposure to COVID-19; Z79.899 Other long term (current) drug therapy
CPT/HCPCS: 0241U; 36415; 71045; 80048; 80053; 80076; 80175; 80307; 81003; 81025; 83036; 83605; 83690; 84484; 84702; 85025; 87040; 87086; 87635; 93005; 96361; 96374; 99285; J1200; J2060; S9485

== ENCOUNTER → 2023-05-20 16:04 | Outpatient (BNV) | payer MEDICARE, MEDICAID, SELFPAY | PROVIDERS: Admitting Provider Psychiatry & Neurology Psychiatry; Emergency Provider Emergency Medicine; Visit Provider Social Worker | DX: F31.9 Bipolar disorder, unspecified (principal); F14.20 Cocaine dependence, uncomplicated; F11.20 Opioid dependence, uncomplicated | CPT/HCPCS: 90792; 99231; 99232; 99239; 99499 ==

== ENCOUNTER 2023-05-27 15:33 | Emergency (ER) | payer MEDICARE, MEDICAID, SELFPAY ==
[2023-05-27 15:48] VITALS: BP 138/73; PULSE 140; O2SAT 96; BMI 24.6
[2023-05-27 16:03] VITALS: BP 138/73; PULSE 140; RESP 20; TEMP 36.9; O2SAT 96
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
--- NOTE | 2023-05-27 16:18 | ED.PSYCH ---
HPI - Psych General Chief Complaint: Psychiatric Symptoms Stated Complaint: ?ETOH/Hallucinations Time Seen by Provider: 05/27/23 16:07 Source: patient, EMS and old records reviewed Mode of arrival: EMS Limitations: no limitations History of Present Illness HPI Narrative: This is a 32-year-old female came in by ambulance for evaluation for possible acute psychosis. Patient was just discharged from home inpatient psych unit at a.m. 5 today. Patient lives alone, was terrified to be alone at home thing scissors sneaks in her home, felt unsafe ran to the store when she claimed that she has been bitten by snakes, patient admitted to visual and auditory hallucination , decline HI, SI. No history of alcohol abuse last use was a few months ago as per patient, patient only takes her prescribed methadone but declined using any other drugs (history of cocaine and opiate use disorder). Patient had a previous hospitalization for bipolar disorder. Related Data Home Medications Medication Instructions Recorded Confirmed methadone 10 mg/5 mL oral solution 70 mg PO DAILY 05/20/23 05/20/23 Align 1 cap PO DAILY 05/23/23 05/23/23 Previous Rx's Medication Instructions Recorded clonazepam 0.5 mg tablet 0.5 mg PO TID PRN anxiety #21 tabs 05/26/23 cyclobenzaprine 5 mg tablet 5 mg PO TID PRN spasm #21 tabs 05/26/23 gabapentin 100 mg capsule 100 mg PO TID #21 caps 05/26/23 hydroxyzine HCl 25 mg tablet 25 mg PO Q6H PRN anxiety #60 tabs 05/26/23 lamotrigine 25 mg tablet 25 mg PO BEDTIME #30 tabs 05/26/23 lidocaine 4 % topical patch 2 patch transdermal DAILY PRN back 05/26/23 (Lidocaine Pain Relief) pain #30 ea metronidazole 500 mg tablet 500 mg PO Q8H #32 tabs 05/26/23 multivitamin 1 tab PO DAILY #90 tabs 05/26/23 nicotine (polacrilex) 2 mg gum 4 mg PO Q2H PRN nicotine cravings 05/26/23 #60 ea nicotine 14 mg/24 hr daily 1 patch topical QAM #30 ea 05/26/23 transdermal patch omeprazole 20 mg capsule,delayed 20 mg PO QAM #30 caps 05/26/23 release prazosin 1 mg capsule 1 mg PO BEDTIME #15 caps 05/26/23 quetiapine 25 mg tablet 25 mg PO TID PRN agitation, 05/26/23 anxiety #21 tabs quetiapine 50 mg tablet 50 mg PO BEDTIME #15 tabs 05/26/23 risperidone 0.5 mg tablet 0.5 mg PO BID #60 tabs 05/26/23 thiamine HCl (vitamin B1) 100 mg 50 mg (1/2 x 100 mg) PO DAILY #90 05/26/23 tablet tabs trazodone 50 mg tablet 50 mg PO BEDTIME PRN Insomnia #15 05/26/23 tabs ibuprofen 600 mg tablet 600 mg PO Q8H PRN pain #20 tabs 05/27/23 Allergies Allergy/AdvReac Type Severity Reaction Status Date / Time capsaicin Allergy Rash Verified 05/27/23 15:48 Review of Systems Review of Systems: all other systems are reviewed and are negative Constitutional: Reports as per HPI and Reports no additional constitutional complaints Eyes: Reports as per HPI and Reports no additional eye complaints Reports system reviewed and no additional complaints, except as documented Cardiovascular: Reports as per HPI and Reports no additional cardiovascular complaints Respiratory: Reports as per HPI and Reports no additional respiratory complaints Gastrointestinal: Reports as per HPI and Reports no additional gastrointestinal complaints Genitourinary: Reports no additional female genitourinary complaints Musculoskeletal: Reports no additional musculoskeletal complaints Skin/Breast: Reports system reviewed and no additional complaints, except as docu Psychiatric: Reports no additional psychiatric complaints Endocrine: Reports no additional endocrine complaints Hematologic/Lymphatic: Reports no additional hematologic/lymphatic complaints Allergic/Immunologic: Reports no additional allergic/immunologic complaints Reports system reviewed and no additional complaints, except as documented and Reports Abnormal speech present [facility] Past Medical History Medical History Opiate use Cocaine abuse Bipolar 1 disorder Screen for STD (sexually transmitted disease) Social History Social History Household Members: None Housing: Apartment Do you presently have visiting nurse or other home services: No Unable to assess alcohol history related to: Unknown Patient Tobacco Use Status: Current everyday Tobacco user Tobacco use type: Cigarette Years Smoked: Unknown; pt unable to participate due to mental status. Smoked in Last 30 Days: Yes Second Hand Smoke Exposure: Yes Use of substances other than those prescribed or required for medical reasons: Unknown Substance Use Type: Crack/Cocaine and Opiates Advance Directives: No Advance Directives Information Provided: Yes Patient : No service: No Sexual orientation: Straight/Heterosexual Physical Exam Vital Signs: Vital Signs: Last Vital Signs Temp 98.2 F 05/27/23 22:03 Pulse 81 05/27/23 22:03 Resp 14 05/27/23 22:03 BP 92/54 L 05/27/23 22:03 Pulse Ox 97 05/27/23 22:03 O2 Del Method Room Air 05/27/23 22:03 BMI result Body Mass Index 24.6 Vital signs have been reviewed and appear to be correct. Blood pressure elevated. tachycardia. Respiratory rate normal. Temperature normal. Oxygen saturation normal. Appearance: Alert. Oriented X3. No acute distress. Head: Normal external exam. Normocephalic. Atraumatic. No [place] signs noted. No raccoon eyes noted Eyes: PERRLA. EOMI. Conjunctiva and sclera normal. Eyelids normal. ENT: TM's Normal. Pharynx normal. Uvula midline. Moist mucous membranes. No trismus noted. No drooling noted. No muffled voice noted. Neck: Normal inspection. Neck supple. FROM. No adenopathy. Thyroid Normal. No meningeal signs. No neck mass noted. CVS: Normal heart rate and rhythm. Heart sound normal. No murmurs noted. Pulses normal throughout. Respiratory: No respiratory distress. Painless inspiration. Breath sounds normal. No wheezes/rales/rhonchi noted. Chest nontender. No accessory muscle usage noted or decreased air movement noted. Abdomen: Soft and nontender. Bowel sounds normal in all 4 quadrants. No distention noted. No organomegaly noted. No visible injury noted. Back: No CVA tenderness. Full range of motion noted. Skin: Skin warm and dry. Normal skin color. Normal skin turgor. No rashes/lesions/lacerations noted. Extremities: No lower extremity edema. Extremities exhibit normal range of motion. Extremities nontender. Neuro: Oriented X 3. Cranial nerve exam: II-XII are grossly intact No motor deficit. No sensory deficit. Reflexes normal. Course Reevaluation(s) Reevaluation #1: 32-year-old female history of bipolar disorder came in with acute psychosis and irrational delusional disorder, patient is medically cleared was just discharged from [address] consult care team, start the patient on physician observation. Time: 21:27 Medications Administered Discontinued Medications Generic Name Dose Route Start Last Admin Trade Name [place] PRN Reason Stop Dose Admin Gabapentin 300 mg 05/27/23 18:42 05/27/23 20:03 Gabapentin 300 Mg Capsule PO 05/27/23 18:43 300 mg ONCE ONE Administration Sodium Chloride 1,000 mls @ 999 mls/hr 05/27/23 16:16 05/27/23 20:02 Ns IV 05/27/23 17:16 Infused .Q1H1M ONE Infusion Sodium Chloride 1,000 mls @ 999 mls/hr 05/27/23 17:26 05/27/23 20:02 Ns IV 05/27/23 18:26 Infused .Q1H1M ONE Infusion Lorazepam 1 mg 05/27/23 16:16 05/27/23 17:25 Lorazepam 2 Mg/Ml Vial IVPUSH 05/27/23 16:17 1 mg ONCE ONE Administration Lorazepam 1 mg 05/27/23 22:22 05/27/23 22:30 Lorazepam 1 Mg Tablet PO 05/27/23 22:23 1 mg ONCE ONE Administration Medical Decision Making Differential Diagnosis Differential Diagnoses: The differential diagnosis associated with the presentation includes ( Acute psychosis, electrolyte abnormality, severe anemia, substance abuse , pneumonia, UTI, .) Admission/Observation Consideration of admission/observation: Escalation of care including admission/observation considered Lab Data MDM Lab Attestation statement: I reviewed the patient's lab results. 05/27/23 17:28 05/27/23 17:28 Labs: Lab Results 05/27/23 05/27/23 05/27/23 Range/Units 17:03 17:28 22:02 WBC 10.0 (4.8-10.8) X10*3/uL RBC 3.62 L (4.20-5.50) X10*6/uL Hgb 10.9 L (12.0-16.0) g/dl Hct 33.4 L (37.0-47.0) % MCV 92.3 (80.0-98.0) fL MCH 30.1 (27.0-33.0) pg MCHC 32.6 (31.0-35.0) g/dl RDW 12.5 (11.0-16.0) % Plt Count 245 (160-400) X10*3/uL MPV 10.0 (9.4-12.3) fL Immature Gran % (Auto) 0.2 (0.0-0.4) % Neut % (Auto) 63.3 (45-73) % Lymph % (Auto) 25.8 (20-40) % [place] % (Auto) 9.6 (2-11) % Eos % (Auto) 1.0 (0-4) % Baso % (Auto) 0.1 (0-2) % Lymph # (Auto) 2.6 (1.2-4.9) X10*3/uL [place] # (Auto) 1.0 (0.1-1.2) X10*3/uL Eos # (Auto) 0.1 (0.0-0.4) X10*3/uL Baso # (Auto) 0.0 (0.0-0.2) X10*3/uL Abs Immat Gran (auto) 0.02 (0.00-0.03) X10*3/uL Absolute Neuts (auto) 6.3 (2.0-8.3) x10*3/uL Absolute Nucleated RBC 0.000 (0.0-0.012) X10*3/uL Nucleated RBC % (auto) 0.0 (0.0-0.2) /100WBC Sodium 141 (135-145) mmol/L Potassium 4.2 (3.3-5.1) mmol/L Chloride 107 (96-108) mmol/L Carbon Dioxide 23 (22-29) mmol/L Anion Gap 15 (12-20) BUN 31 H (9-16) mg/dL Creatinine 0.77 (0.5-1.4) mg/dL Estim Creat Clear Calc 87.3 Estimated GFR > 60 Random Glucose 99 (60-115) mg/dL Lactic Acid 1.0 (0.5-2.0) mmol/L Calcium 9.1 (8.4-10.2) mg/dL Total Bilirubin 0.1 (0.0-1.0) mg/dL Direct Bilirubin < 0.2 (0.0-0.5) mg/dL AST 56 H (5-31) U/L ALT 84 H (0-31) U/L Alkaline Phosphatase 69 (39-117) U/L Troponin I High Sens 6.6 (<3.5-17.0) ng/L Total Protein 7.0 (6.5-8.0) g/dL Albumin 4.0 (3.5-5.0) g/dL Lipase 19 (8-78) U/L Urine Color Yellow Urine Appearance Clear Urine pH 6.5 (5.0-9.0) Ur Specific [place] 1.015 (1.005-1.025) Urine Protein Negative (Neg-Trace) mg/dL Urine Glucose (UA) Negative (Negative) mg/dL Urine Ketones Negative (Negative) mg/dL Urine Blood Negative (Negative) Urine Nitrite Negative (Negative) Ur Leukocyte Esterase Negative (Negative) Urine Test NEGATIVE (NEGATIVE) Urine Opiates Screen Not Detected (Not Detect) Urine Fentanyl Screen POSITIVE H (Not Detect) Ur Barbiturates Screen Not Detected (Not Detect) Ur Phencyclidine Scrn Not Detected (Not Detect) Ur Amphetamines Screen Not Detected (Not Detect) U Benzodiazepines Scrn Not Detected (Not Detect) Urine Cocaine Screen POSITIVE H (Not Detect) U Marijuana (THC) Screen Not Detected (Not Detect) Ethyl Alcohol < 10 mg/dL Influenza Type A (PCR) NEGATIVE (Negative) Influenza Type B (PCR) NEGATIVE (Negative) RSV RNA Qual (PCR) NEGATIVE (Negative) SARS-CoV-2 RNA (RT-PCR) NEGATIVE (Negative) Independent Interpretation I performed an independent interpretation of an: EKG ( Sinus tachycardia at 124 beats per minutes, normal axis deviation, normal intervals, no ST-T changes.) and Plain X-Ray ( Chest: No acute intrathoracic pathology.) Radiology Impression Discussion of test interpretation with radiology: I have reviewed the radiologist's reading. Discharge Plan Discharge Clinical Impression: Bipolar 1 disorder Patient Disposition: Still a Patient Prescriptions: No Action methadone 10 mg/5 mL Solution 70 mg PO DAILY Align 1 cap PO DAILY metronidazole 500 mg Tablet 500 mg PO Q8H Qty: 32 0RF cyclobenzaprine 5 mg Tablet 5 mg PO TID PRN (Reason: spasm) Qty: 21 0RF quetiapine 25 mg Tablet 25 mg PO TID PRN (Reason: agitation, anxiety) Qty: 21 1RF lidocaine [Lidocaine Pain Relief] 4 % Adhesive Patch,Medicated 2 patch transdermal DAILY PRN (Reason: back pain) Qty: 30 1RF Protocol: Apply to: Apply to: back trazodone 50 mg Tablet 50 mg PO BEDTIME PRN (Reason: Insomnia) Qty: 15 1RF clonazepam 0.5 mg Tablet 0.5 mg PO TID PRN (Reason: anxiety) Qty: 21 2RF risperidone 0.5 mg Tablet 0.5 mg PO BID Qty: 60 0RF quetiapine 50 mg Tablet 50 mg PO BEDTIME Qty: 15 1RF nicotine 14 mg/24 hr patch 24 hour 1 patch topical QAM Qty: 30 0RF nicotine (polacrilex) 2 mg gum 4 mg PO Q2H PRN (Reason: nicotine cravings) Qty: 60 0RF prazosin 1 mg capsule 1 mg PO BEDTIME Qty: 15 1RF lamotrigine 25 mg tablet 25 mg PO BEDTIME Qty: 30 0RF omeprazole 20 mg capsule,delayed release(DR/EC) 20 mg PO QAM Qty: 30 0RF hydroxyzine HCl 25 mg tablet 25 mg PO Q6H PRN (Reason: anxiety) Qty: 60 0RF gabapentin 100 mg capsule 100 mg PO TID Qty: 21 4RF multivitamin Tablet 1 tab PO DAILY Qty: 90 0RF thiamine HCl (vitamin B1) 100 mg tablet 50 mg PO DAILY Qty: 90 0RF ibuprofen 600 mg tablet 600 mg PO Q8H PRN (Reason: pain) Qty: 20 0RF Interventions: [place]-Suicide Risk Severity Scale Last Done: 05/27/23 15:57
--- NOTE | 2023-05-27 17:30 | PC.NURSE ---
22gIV placed in the right hand after multiple attempts. pt was hard stick d/t hx of IV drug use. late medication administration d/t difficulty obtaining IV access. medication and IVF administered per provider order. tech obtained labs and sent them over. pt seemingly less anxious at this time. call oswald placed within reach.
[2023-05-27 17:44] VITALS: BP 95/60; PULSE 101; RESP 18; TEMP 36.8; O2SAT 97
[2023-05-27 17:58] LABS: Alanine Aminotransferase 84 U/L (0-31); Alkaline Phosphatase 69 U/L (39-117); Anion Gap 15 (12-20); Aspartate Amino Transferase 56 U/L (5-31); Bilirubin Direct < 0.2 mg/dL (0.0-0.5); Bilirubin Total 0.1 mg/dL (0.0-1.0); Blood Urea Nitrogen 31 mg/dL (9-16); Calcium 9.1 mg/dL (8.4-10.2); Carbon Dioxide 23 mmol/L (22-29); Chloride 107 mmol/L (96-108); Creatinine Clr Calc Pharmacy 87.3; Estimated Glomerular Filt Rate > 60; Glucose Random 99 mg/dL (60-115); Lipase 19 U/L (8-78); Potassium 4.2 mmol/L (3.3-5.1); Sodium 141 mmol/L (135-145)
[2023-05-27 18:32] VITALS: BP 101/63; PULSE 97; RESP 14; O2SAT 98
[2023-05-27 18:39] VITALS: BP 97/62; PULSE 94; RESP 16; O2SAT 97
--- NOTE | 2023-05-27 18:40 | PC.NURSE ---
pt still verbalizing anxiety at this time. pt requesting more ativan as well as pain medication d/t chronic lower back pain. pt rates pain at a 10/10. will notify provider. 1:1 sitter present.
--- NOTE | 2023-05-27 21:36 | PC.NURSE ---
This RN attempted to collect UA from pt. Per pt does not need to go right now. Pt given something to drink Provider devora made aware.
--- NOTE | 2023-05-27 22:01 | PC.NURSE ---
RN to bedside to answer call oswald, pt found to be sitting upright on the edge of the bed; awake, alert, skin appears oiled rather than diaphoretic. She is inquiring on results (whether or not the dr will come over to review them), plan/next steps and whether she can get something for her anxiety as well as her flexeril. The pt was previously resting in stretcher with eyes closed, repirations even and unlabored as she appeared to be sleeping. RN consulted Dr. Tipton to make him aware and plan for new order to assist with pt's request for medication.
[2023-05-27 22:03] VITALS: BP 92/54; PULSE 81; RESP 14; TEMP 36.8; O2SAT 97
--- NOTE | 2023-05-27 22:34 | PC.NURSE ---
Pt cooperative and calm. Pt medicated per oct. Pt with sitter. Plan of care ongoing.
--- NOTE | 2023-05-27 22:38 | PC.NURSE ---
Med count error/discrepancy noted in med pyxis for ativan with supercharger mechanicCLIFFORD Cummings.
--- NOTE | 2023-05-28 06:15 | PC.NURSE ---
Pt ambulated with a steady gait to the restroom. Pt requested and given gingerale Pt requested and given clean hospital attire. Plan of care ongoing.
--- NOTE | 2023-05-28 06:22 | PC.NURSE ---
Pt asking what the plan is for her and wanted to know if she can be d/c. This RN explained currently waiting for a care team consult. Pt reporting she is on methadone and the clinic closes early on wkends and she wants to know if she doesnt get out in time if we will help her with her methadone dose. Pt also requesting tylenol. Provider aware of pt requests.
--- NOTE | 2023-05-28 06:36 | PC.NURSE ---
This RN called [facility] [phone] attempting to verify pts methadone dose unable to get a hold of anyone. Provider made aware.
--- NOTE | 2023-05-28 07:07 | PC.NURSE ---
Resting quietly, breathing even and unlabored
[2023-05-28 07:13] VITALS: RESP 18
--- NOTE | 2023-05-28 07:40 | PC.NURSE ---
Patient seen by care team, plan is to be discharged and for lyft ride to be provided so patient can get methadone dose at [facility]. Patient in agreement with plan of care
--- NOTE | 2023-05-28 07:53 | PC.NURSE ---
Patient provided with food and fluids per request. x2 calls placed to kitchen for breakfast tray, stating tray is on its way
--- NOTE | 2023-05-28 07:59 | PC.NURSE ---
Patient requesting to be sent home instead of methadone clinic, stating she will walk to methadone clinic once she goes home and changes. Care team aware and will change lyft ride to bring patient home.
--- NOTE | 2023-05-28 08:44 | PC.NURSE ---
Patient belongings found in locker 8 and given to patient, care team notified lyft can be booked
== END 2023-05-28 08:49 | disposition home or self-care (01) ==
PROVIDERS: Emergency Provider Emergency Medicine
DX: F23 Brief psychotic disorder (principal); F22 Delusional disorders; F31.9 Bipolar disorder, unspecified; Z20.822 Contact with and (suspected) exposure to COVID-19; Z20.828 Contact with and (suspected) exposure to other viral communicable diseases; F14.20 Cocaine dependence, uncomplicated; F11.20 Opioid dependence, uncomplicated; F17.210 Nicotine dependence, cigarettes, uncomplicated; Z79.899 Other long term (current) drug therapy
CPT/HCPCS: 0241U; 36415; 71045; 80048; 80076; 80307; 81003; 81025; 83605; 83690; 84484; 85025; 87040; 93005; 99285; J2060; S9485

== ENCOUNTER 2023-05-28 19:20 | Inpatient (IN) | payer MEDICARE, MEDICAID, SELFPAY ==
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
[2023-05-28 19:30] VITALS: PULSE 128; RESP 24; TEMP 37.4; O2SAT 95
[2023-05-28 19:34] VITALS: BMI 22.5
[2023-05-28 19:45] VITALS: RESP 22
[2023-05-28 20:00] VITALS: BP 109/67; PULSE 105; RESP 18; TEMP 37.7; O2SAT 95
[2023-05-28 20:15] VITALS: RESP 16
[2023-05-28 20:30] VITALS: BP 97/63; PULSE 93; RESP 16; TEMP 36.8; O2SAT 93
[2023-05-28 21:22] VITALS: PULSE 87; RESP 16; O2SAT 95
--- NOTE | 2023-05-29 06:33 | PC.NURSE ---
Patient slept through the night, no distress observed/reported, patient is S/P chemical restraint @ 1930, med rec completed/pending provider's approval, pending Methadon verification, care consult ordered fro chad/pending evaluation, behavior non consening at this time, will continue to monitor.
[2023-05-29 06:46] VITALS: BP 95/52; PULSE 79; RESP 16; TEMP 36.7; O2SAT 95
--- NOTE | 2023-05-29 07:33 | PC.NURSE ---
patient appears to remain asleep at present respirations are even and unlabored patient appears in no distress.
--- NOTE | 2023-05-29 08:01 | HE.PHANOTE ---
Methadone Verification Pharmacy has received the methadone verification from [facility]. Patient last received methadone 70 mg on 05/28/23 @ 0923from [facility]. Yecenia Valencia, StevenD
--- NOTE | 2023-05-29 09:26 | PC.NURSE ---
asked provider to continue meds for patient as it appears she will remain in ED today.
[2023-05-29] MEDS: methADONE HCl 20 MG/2 ML ORAL.CONC 70 MG PO (10:58)
[2023-05-29] MEDS: Nicotine 14 MG PATCH.TD24 TRANSDERMA (11:12)
[2023-05-29] MEDS: QUEtiapine Fumarate 25 MG TABLET PO ×2 (11:13→14:11)
[2023-05-29] MEDS: clonazePAM 0.5 MG TABLET PO ×2 (14:11→21:02)
[2023-05-29 16:47] VITALS: BP 97/58; PULSE 86; RESP 18; O2SAT 98
[2023-05-29] MEDS: lamoTRIgine 25 MG TABLET PO (20:56)
[2023-05-29] MEDS: Prazosin HCL 1 MG CAPSULE PO (20:57)
[2023-05-29] MEDS: QUEtiapine Fumarate 50 MG TABLET PO (20:57)
[2023-05-29] MEDS: hydrOXYzine HCL 25 MG TABLET PO (21:03)
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
[2023-05-30 08:14] VITALS: BP 96/50; PULSE 73; RESP 16; TEMP 36.2; O2SAT 97
[2023-05-30 08:49] VITALS: BP 94/62; PULSE 85; RESP 16; TEMP 36.3; O2SAT 98
[2023-05-30] MEDS: Nicotine 14 MG PATCH.TD24 TRANSDERMA (08:52)
[2023-05-30] MEDS: methADONE HCl 20 MG/2 ML ORAL.CONC 70 MG PO (08:52)
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
[2023-05-30 18:00] VITALS: BP 110/74; PULSE 72; RESP 16; TEMP 36.6; O2SAT 98
[2023-05-31 06:00] VITALS: BP 109/57; PULSE 89; RESP 16; TEMP 35.9; O2SAT 100
--- NOTE | 2023-05-31 15:10 | P.PNPSI_ITS ---
Subjective Subjective Date of Service: 05/31/23 Reason For Visit: bipolar d/o, polysubstance use d/o Subjective Notes: Conditional Voluntary and 3 Day Interim History: Visable in milieu Presents with some confusion, tangential Asks to meet, then distracts and attends to another activity. Continues to ask for Klonopin increase Medication Compliance: Yes Side effects from medications: No Attending Groups: Intermittent Review of Systems Acute medical concerns: No Mental Status Exam Mental Status Exam Patient Appearance: Fatigued Patient Orientation: Person, Place, Time and Situation Level of Consciousness: Alert Patient Behavior: Talkative and Good Eye Contact Mood Description: Apprehensive Affect Description: Flat and Apprehensive Patient Cognition Impaired: Yes Ability to Follow Directions: Good Speech Pattern: Spontaneous Speech Memory Description: Episodic Impaired Hallucinations: None Delusions: Not Present Thought Process: Distracted (medicine seeking) Thought Content: positive for Circumstantial, positive for Perseveration and positive for Suicidal Ideation (denies) Depressive Symptoms: Difficulty Sleeping, Crying Spells and Increased Fatigue Judgement: Poor Diagnostics Vital Signs (24Hr): Vital Signs - 24 hr 05/30/23 18:00 05/31/23 06:00 Temperature 97.9 F 96.7 F L Pulse Rate 72 89 Respiratory Rate 16 16 Blood Pressure 110/74 109/57 L Pulse Oximetry 98 100 Oxygen Delivery Method Room Air BMI result Body Mass Index 22.5 Labs Labs: Laboratory Results - last 48 hr 05/29/23 16:41 COVID-19 ([facility]) Negative COVID-19 Clin Com See Note Medications Medications Current Medications Acetaminophen (Acetaminophen 325 Mg Tablet) 650 mg PO Q6H PRN PRN Reason: Headache/Pain Mild Scale (1-3) Last Admin: 05/31/23 10:20 Dose: 650 mg Al Hydroxide/Mg Hydroxide (Magnesium Hydrox/Alum Hydrox 30 Ml Oral.Susp) 30 ml PO Q6H PRN PRN Reason: Heartburn/Nausea Benzocaine (Throat Lozenge, Medicated Lozenge) 1 lozenge MUCOUS MEM Q2H PRN PRN Reason: Sore Throat Last Admin: 05/30/23 19:16 Dose: 1 lozenge Clonazepam (Clonazepam 0.5 Mg Tablet) 0.5 mg PO TID PRN PRN Reason: anxiety Last Admin: 05/31/23 10:20 Dose: 0.5 mg Cyclobenzaprine HCl (Cyclobenzaprine Hcl 10 Mg Tablet) 10 mg PO TID PRN PRN Reason: spasm Last Admin: 05/31/23 08:38 Dose: 10 mg Gabapentin (Gabapentin 100 Mg Capsule) 100 mg PO TID [facility] Last Admin: 05/31/23 08:35 Dose: 100 mg Hydroxyzine HCl (Hydroxyzine Hcl 25 Mg Tablet) 25 mg PO Q6H PRN PRN Reason: Anxiety Last Admin: 05/31/23 08:38 Dose: 25 mg Hydroxyzine HCl (Hydroxyzine Hcl 25 Mg Tablet) 25 mg PO Q6H PRN PRN Reason: Anxiety Last Admin: 05/31/23 12:58 Dose: 25 mg Ibuprofen (Ibuprofen 400 Mg Tablet) 400 mg PO TIDWM PRN PRN Reason: Pain, Mild (Pain Scale 1-3) Last Admin: 05/31/23 12:58 Dose: 400 mg Lamotrigine (Lamotrigine 25 Mg Tablet) 25 mg PO BEDTIME [facility] Last Admin: 05/30/23 20:20 Dose: 25 mg Lidocaine (Lidocaine 4 % Patch Adh..Patch) 2 patch TRANSDERMA DAILY [facility]; Protocol Last Admin: 05/31/23 13:49 Dose: 2 patch Magnesium Hydroxide (Milk Of Magnesia 30 Ml Oral.Susp) 30 ml PO DAILY PRN PRN Reason: Constipation Methadone HCl (Methadone Hcl 20 Mg/2 Ml Oral.Conc) 70 mg PO DAILY [facility] Last Admin: 05/31/23 08:31 Dose: 70 mg Multivitamins/Vitamin C (Multivitamin Tablet) 1 tab PO DAILY [facility] Last Admin: 05/31/23 08:35 Dose: 1 tab Nicotine (Nicotine 14 Mg Patch.Td24) 14 mg TRANSDERMA DAILY [facility] Last Admin: 05/31/23 08:33 Dose: 14 mg Nicotine Polacrilex (Nicotine Polacrilex 2 Mg Gum) 4 mg BUCCAL Q2H PRN PRN Reason: nicotine cravings Last Admin: 05/31/23 12:58 Dose: 4 mg Nicotine Polacrilex (Nicotine Polacrilex 2 Mg Gum) 4 mg BUCCAL Q2H PRN PRN Reason: Nicotine Cravings Omeprazole (Omeprazole 20 Mg Capsule.Dr) 20 mg PO DAILY [facility] Last Admin: 05/31/23 08:33 Dose: 20 mg Ondansetron HCl (Ondansetron Odt 8 Mg Tab.Rapdis) 8 mg TRANSLINGU BID PRN PRN Reason: nausea/vomiting Last Admin: 05/30/23 19:19 Dose: 8 mg Prazosin HCl (Prazosin Hcl 1 Mg Capsule) 1 mg PO BEDTIME [facility]; Protocol Last Admin: 05/30/23 20:21 Dose: 1 mg Quetiapine Fumarate (Quetiapine Fumarate 25 Mg Tablet) 25 mg PO TID PRN PRN Reason: agitation, anxiety Last Admin: 05/31/23 12:58 Dose: 25 mg Quetiapine Fumarate (Quetiapine Fumarate 50 Mg Tablet) 50 mg PO BEDTIME [facility] Last Admin: 05/30/23 20:21 Dose: 50 mg Risperidone (Risperidone 1 Mg Tablet) 1 mg PO BID [facility] Last Admin: 05/31/23 08:35 Dose: 1 mg Thiamine HCl (Thiamine Hcl 100 Mg Tablet) 100 mg PO DAILY [facility] Last Admin: 05/31/23 08:35 Dose: 100 mg Trazodone HCl (Trazodone Hcl 50 Mg Tablet) 50 mg PO BEDTIME [facility] Last Admin: 05/30/23 20:20 Dose: 50 mg Trazodone HCl (Trazodone Hcl 50 Mg Tablet) 50 mg PO BEDTIME MRX1 PRN PRN Reason: Insomnia Allergies Allergies Allergy/AdvReac Type Severity Reaction Status Date / Time capsaicin Allergy Rash Verified 05/27/23 15:48 Assessment & Plan Assessment & Plan (1) Opioid use disorder, moderate, dependence: Status: Acute Code(s): F11.20 - Opioid dependence, uncomplicated (2) Cocaine use disorder, moderate, dependence: Status: Acute Code(s): F14.20 - Cocaine dependence, uncomplicated (3) Bipolar 1 disorder: Status: Acute Code(s): F31.9 - Bipolar disorder, unspecified Plan 05/31- Section 35 is filed. Support, Educate pt in obtaining treatment Medication education Informed Consent: further education needed Reason for continued inpatient stay Substantial Risk for: rapid decompensation Time Spent With Patient Time: Total time managing care of this patient today ____ minutes.
[2023-05-31] MEDS: QUEtiapine Fumarate 25 MG TABLET PO (17:34)
[2023-05-31] MEDS: Acetaminophen 325 MG TABLET 650 MG PO (17:34)
[2023-05-31] MEDS: Magnesium Hydrox/Alum Hydrox 30 ML ORAL.SUSP PO (17:35)
[2023-05-31] MEDS: Nicotine Polacrilex 2 MG GUM 4 MG BUCCAL ×2 (17:36→21:33)
[2023-05-31] MEDS: lamoTRIgine 25 MG TABLET PO ×2 (19:34→21:32)
[2023-05-31] MEDS: risperiDONE 1 MG TABLET PO (19:34)
[2023-05-31] MEDS: traZODone HCL 50 MG TABLET PO (19:34)
[2023-05-31] MEDS: QUEtiapine Fumarate 50 MG TABLET PO (19:34)
[2023-05-31] MEDS: Prazosin HCL 1 MG CAPSULE PO (19:34)
[2023-05-31] MEDS: Gabapentin 100 MG CAPSULE PO (19:35)
[2023-05-31 19:46] VITALS: BP 110/67; PULSE 92; RESP 16; TEMP 36.6; O2SAT 99
[2023-05-31] MEDS: clonazePAM 0.5 MG TABLET PO (21:32)
[2023-05-31] MEDS: Ibuprofen 400 MG TABLET PO (21:32)
[2023-05-31] MEDS: Cyclobenzaprine HCl 10 MG TABLET PO (21:33)
[2023-06-01 06:00] VITALS: BP 102/57; PULSE 84; RESP 18; TEMP 36; O2SAT 98
[2023-06-01] MEDS: risperiDONE 1 MG TABLET PO (08:24)
[2023-06-01] MEDS: Omeprazole 20 MG CAPSULE.DR PO (08:24)
[2023-06-01] MEDS: Multivitamin TABLET 1 TAB PO (08:24)
[2023-06-01] MEDS: Lidocaine 4 % Patch ADH..PATCH 2 PATCH TRANSDERMA (08:24)
[2023-06-01] MEDS: Nicotine 14 MG PATCH.TD24 TRANSDERMA (08:24)
[2023-06-01] MEDS: Thiamine HCL 100 MG TABLET PO (08:24)
[2023-06-01] MEDS: Gabapentin 100 MG CAPSULE PO ×3 (08:24→20:22)
[2023-06-01] MEDS: methADONE HCl 20 MG/2 ML ORAL.CONC 70 MG PO (08:24)
[2023-06-01] MEDS: Cyclobenzaprine HCl 10 MG TABLET PO ×2 (08:38→18:18)
[2023-06-01] MEDS: clonazePAM 0.5 MG TABLET PO ×2 (08:38→14:06)
[2023-06-01] MEDS: hydrOXYzine HCL 25 MG TABLET PO ×2 (10:15→18:18)
[2023-06-01] MEDS: Acetaminophen 325 MG TABLET 650 MG PO ×2 (10:15→18:18)
[2023-06-01] MEDS: Ondansetron ODT 8 MG TAB.RAPDIS TRANSLINGU ×2 (10:15→20:35)
[2023-06-01] MEDS: Nicotine Polacrilex 2 MG GUM 4 MG BUCCAL ×3 (10:18→20:35)
[2023-06-01] MEDS: QUEtiapine Fumarate 25 MG TABLET PO ×2 (11:24→20:35)
[2023-06-01] MEDS: metroNIDAZOLE 500 MG TABLET PO ×2 (12:10→20:21)
--- NOTE | 2023-06-01 12:51 | P.PNPSI_ITS ---
Subjective Subjective Date of Service: 06/01/23 Reason For Visit: bipolar d/o, polysubstance use d/o Subjective Notes: Conditional Voluntary and 3 Day Interim History: Clearing presentation today. Seen by Dr. Yepez for Section 35 consult Continues to ask for Klonopin increase. Discussed Latuda, Vraylar, [place]. Handouts given for pt to review. Medication Compliance: Yes Side effects from medications: No Attending Groups: Yes Review of Systems Acute medical concerns: No Medical Review of Systems: unchanged Mental Status Exam Mental Status Exam Patient Appearance: Appropriate Patient Orientation: Person, Place, Time and Situation Level of Consciousness: Alert Patient Behavior: Talkative and Good Eye Contact Mood Description: Apprehensive Affect Description: Flat and Apprehensive Patient Cognition Impaired: No Ability to Follow Directions: Good Speech Pattern: Spontaneous Speech Memory Description: Episodic Impaired Hallucinations: None Delusions: Not Present Thought Process: Distracted (medicine seeking) Thought Content: positive for Circumstantial, positive for Perseveration and positive for Suicidal Ideation (denies) Depressive Symptoms: Thoughts of /Suicide (denies) Judgement: Poor Diagnostics Vital Signs (24Hr): Vital Signs - 24 hr 05/31/23 19:46 06/01/23 06:00 Temperature 97.8 F 96.8 F Pulse Rate 92 84 Respiratory Rate 16 18 Blood Pressure 110/67 102/57 L Pulse Oximetry 99 98 Oxygen Delivery Method Room Air Room Air BMI result Body Mass Index 22.5 Medications Medications Current Medications Acetaminophen (Acetaminophen 325 Mg Tablet) 650 mg PO Q6H PRN PRN Reason: Headache/Pain Mild Scale (1-3) Last Admin: 06/01/23 10:15 Dose: 650 mg Al Hydroxide/Mg Hydroxide (Magnesium Hydrox/Alum Hydrox 30 Ml Oral.Susp) 30 ml PO Q6H PRN PRN Reason: Heartburn/Nausea Last Admin: 05/31/23 17:35 Dose: 30 ml Benzocaine (Throat Lozenge, Medicated Lozenge) 1 lozenge MUCOUS MEM Q2H PRN PRN Reason: Sore Throat Last Admin: 05/30/23 19:16 Dose: 1 lozenge Clonazepam (Clonazepam 0.5 Mg Tablet) 0.5 mg PO TID PRN PRN Reason: anxiety Last Admin: 06/01/23 08:38 Dose: 0.5 mg Clonidine HCl (Clonidine Hcl 0.1 Mg Tablet) 0.1 mg PO TID PRN; Protocol PRN Reason: withdrawal Cyclobenzaprine HCl (Cyclobenzaprine Hcl 10 Mg Tablet) 10 mg PO TID PRN PRN Reason: spasm Last Admin: 06/01/23 08:38 Dose: 10 mg Gabapentin (Gabapentin 100 Mg Capsule) 100 mg PO TID [facility] Last Admin: 06/01/23 08:24 Dose: 100 mg Hydroxyzine HCl (Hydroxyzine Hcl 25 Mg Tablet) 25 mg PO Q6H PRN PRN Reason: Anxiety Last Admin: 06/01/23 10:15 Dose: 25 mg Hydroxyzine HCl (Hydroxyzine Hcl 25 Mg Tablet) 25 mg PO Q6H PRN PRN Reason: Anxiety Last Admin: 05/31/23 17:34 Dose: 25 mg Ibuprofen (Ibuprofen 400 Mg Tablet) 400 mg PO TIDWM PRN PRN Reason: Pain, Mild (Pain Scale 1-3) Last Admin: 05/31/23 21:32 Dose: 400 mg Lamotrigine (Lamotrigine 25 Mg Tablet) 25 mg PO BID [facility] Lidocaine (Lidocaine 4 % Patch Adh..Patch) 2 patch TRANSDERMA DAILY [facility]; Protocol Last Admin: 06/01/23 08:24 Dose: 2 patch Magnesium Hydroxide (Milk Of Magnesia 30 Ml Oral.Susp) 30 ml PO DAILY PRN PRN Reason: Constipation Methadone HCl (Methadone Hcl 20 Mg/2 Ml Oral.Conc) 70 mg PO DAILY [facility] Last Admin: 06/01/23 08:24 Dose: 70 mg Metronidazole (Metronidazole 500 Mg Tablet) 500 mg PO Q8H [facility] Last Admin: 06/01/23 12:10 Dose: 500 mg Multivitamins/Vitamin C (Multivitamin Tablet) 1 tab PO DAILY [facility] Last Admin: 06/01/23 08:24 Dose: 1 tab Nicotine (Nicotine 14 Mg Patch.Td24) 14 mg TRANSDERMA DAILY [facility] Last Admin: 06/01/23 08:24 Dose: 14 mg Nicotine Polacrilex (Nicotine Polacrilex 2 Mg Gum) 4 mg BUCCAL Q2H PRN PRN Reason: nicotine cravings Last Admin: 06/01/23 10:18 Dose: 4 mg Nicotine Polacrilex (Nicotine Polacrilex 2 Mg Gum) 4 mg BUCCAL Q2H PRN PRN Reason: Nicotine Cravings Omeprazole (Omeprazole 20 Mg Capsule.Dr) 20 mg PO DAILY [facility] Last Admin: 06/01/23 08:24 Dose: 20 mg Ondansetron HCl (Ondansetron Odt 8 Mg Tab.Rapdis) 8 mg TRANSLINGU BID PRN PRN Reason: nausea/vomiting Last Admin: 06/01/23 10:15 Dose: 8 mg Prazosin HCl (Prazosin Hcl 1 Mg Capsule) 1 mg PO BEDTIME [facility]; Protocol Last Admin: 05/31/23 19:34 Dose: 1 mg Quetiapine Fumarate (Quetiapine Fumarate 25 Mg Tablet) 25 mg PO TID PRN PRN Reason: agitation, anxiety Last Admin: 06/01/23 11:24 Dose: 25 mg Quetiapine Fumarate (Quetiapine Fumarate 50 Mg Tablet) 50 mg PO BEDTIME [facility] Last Admin: 05/31/23 19:34 Dose: 50 mg Risperidone (Risperidone 2 Mg Tablet) 2 mg PO BID [facility] Thiamine HCl (Thiamine Hcl 100 Mg Tablet) 100 mg PO DAILY [facility] Last Admin: 06/01/23 08:24 Dose: 100 mg Trazodone HCl (Trazodone Hcl 50 Mg Tablet) 50 mg PO BEDTIME [facility] Last Admin: 05/31/23 19:34 Dose: 50 mg Trazodone HCl (Trazodone Hcl 50 Mg Tablet) 50 mg PO BEDTIME MRX1 PRN PRN Reason: Insomnia Allergies Allergies Allergy/AdvReac Type Severity Reaction Status Date / Time capsaicin Allergy Rash Verified 05/27/23 15:48 Assessment & Plan Assessment & Plan (1) Opioid use disorder, moderate, dependence: Status: Acute Code(s): F11.20 - Opioid dependence, uncomplicated (2) Cocaine use disorder, moderate, dependence: Status: Acute Code(s): F14.20 - Cocaine dependence, uncomplicated (3) Bipolar 1 disorder: Status: Acute Code(s): F31.9 - Bipolar disorder, unspecified Plan 06/01/23: Information given on Vraylar, [place], Latuda Increase Risperdal to 2 mg bid Increase Lamictal to 25 mg bid Re-start Flagyl 500 mg q8h Pending Section 35 Patient educated on: medication risk/benefits and therapeutic strategies Informed Consent: further education needed Reason for continued inpatient stay Substantial Risk for: harm to self, inability to function and rapid decompensation Time Spent With Patient Time: Total time managing care of this patient today ____ minutes.
[2023-06-01] MEDS: cloNIDine HCL 0.1 MG TABLET PO ×2 (14:06→18:19)
[2023-06-01 14:10] VITALS: BP 127/60; PULSE 99
[2023-06-01] MEDS: Throat Lozenge, Medicated LOZENGE 1 LOZENGE MUCOUS MEM (14:13)
[2023-06-01 14:17] VITALS: BP 127/60; PULSE 99
[2023-06-01 18:00] VITALS: BP 109/59; PULSE 85; RESP 16; TEMP 36.6; O2SAT 98
[2023-06-01] MEDS: Prazosin HCL 1 MG CAPSULE PO (20:21)
[2023-06-01] MEDS: risperiDONE 2 MG TABLET PO (20:21)
[2023-06-01] MEDS: lamoTRIgine 25 MG TABLET PO (20:21)
[2023-06-01] MEDS: QUEtiapine Fumarate 50 MG TABLET PO (20:22)
[2023-06-01] MEDS: traZODone HCL 50 MG TABLET PO (20:22)
[2023-06-01] MEDS: Ibuprofen 400 MG TABLET PO (23:10)
[2023-06-01] MEDS: Magnesium Hydrox/Alum Hydrox 30 ML ORAL.SUSP PO (23:11)
[2023-06-02] MEDS: metroNIDAZOLE 500 MG TABLET PO (06:03)
[2023-06-02 08:05] VITALS: BP 91/52; PULSE 85; TEMP 36.1; O2SAT 97
[2023-06-02] MEDS: Nicotine 14 MG PATCH.TD24 TRANSDERMA (08:45)
[2023-06-02] MEDS: methADONE HCl 20 MG/2 ML ORAL.CONC 70 MG PO (08:46)
[2023-06-02] MEDS: risperiDONE 2 MG TABLET PO (08:47)
[2023-06-02] MEDS: Gabapentin 100 MG CAPSULE PO (08:47)
[2023-06-02] MEDS: Omeprazole 20 MG CAPSULE.DR PO (08:47)
[2023-06-02] MEDS: lamoTRIgine 25 MG TABLET PO (08:47)
[2023-06-02] MEDS: clonazePAM 0.5 MG TABLET PO (08:47)
[2023-06-02] MEDS: Thiamine HCL 100 MG TABLET PO (08:47)
[2023-06-02] MEDS: Cyclobenzaprine HCl 10 MG TABLET PO (08:47)
[2023-06-02] MEDS: Multivitamin TABLET 1 TAB PO (08:47)
[2023-06-02] MEDS: cloNIDine HCL 0.1 MG TABLET PO (10:22)
[2023-06-02] MEDS: Ibuprofen 400 MG TABLET PO (10:22)
[2023-06-02] MEDS: hydrOXYzine HCL 25 MG TABLET PO (10:23)
[2023-06-02] MEDS: QUEtiapine Fumarate 25 MG TABLET PO (10:23)
[2023-06-02] MEDS: Lidocaine 4 % Patch ADH..PATCH 2 PATCH TRANSDERMA (10:23)
[2023-06-02] MEDS: Nicotine Polacrilex 2 MG GUM 4 MG BUCCAL (10:23)
[2023-06-02] MEDS: Acetaminophen 325 MG TABLET 650 MG PO (10:23)
--- NOTE | 2023-06-21 19:01 | PM.PSYDC ---
DS: Providers Provider Date of Service: 06/02/23 Date of admission: 05/29/23 18:46 Date of discharge: 06/02/23 Primary care physician: Unknown Physician Admitting clinician: Shy Prakash Attending physician on admission: Rene Yepez Attending physician on discharge: Rene Yepez Discharging clinician: Shy Prakash DS: Diagnosis Discharge Diagnosis (1) Opioid use disorder, moderate, dependence: Status: Acute (2) Cocaine use disorder, moderate, dependence: Status: Acute (3) Bipolar 1 disorder: Status: Acute DS: Medications Discharge Medications Home Medications: Home Medications Medication Instructions Recorded Confirmed clonazepam 0.5 mg tablet 0.5 mg PO TID PRN anxiety 05/28/23 05/28/23 hydroxyzine HCl 25 mg tablet 25 mg PO QID 05/28/23 05/28/23 lamotrigine 25 mg tablet 25 mg PO BEDTIME 05/28/23 05/28/23 ondansetron 8 mg disintegrating 8 mg PO BID PRN nausea/vomiting 05/28/23 05/28/23 tablet prazosin 1 mg capsule 1 mg PO BEDTIME 05/28/23 05/28/23 quetiapine 50 mg tablet 50 mg PO BEDTIME 05/28/23 05/28/23 trazodone 50 mg tablet 50 mg PO BEDTIME 05/28/23 05/28/23 cyclobenzaprine 5 mg tablet 5 mg PO TID PRN Spasms 05/29/23 05/29/23 gabapentin 100 mg capsule 100 mg PO TID 05/29/23 05/29/23 methadone 10 mg/mL oral 70 mg PO DAILY 05/29/23 05/29/23 concentrate (Methadone Intensol) multivitamin 1 tab PO DAILY 05/29/23 05/29/23 omeprazole 20 mg capsule,delayed 20 mg PO QAM 05/29/23 05/29/23 release Previous Rx's Medication Instructions Recorded nicotine (polacrilex) 2 mg gum 4 mg PO Q2H PRN nicotine cravings 05/26/23 #60 ea nicotine 14 mg/24 hr daily 1 patch topical QAM #30 ea 05/26/23 transdermal patch quetiapine 25 mg tablet 25 mg PO TID PRN agitation, 05/26/23 anxiety #21 tabs clonidine HCl 0.1 mg tablet 0.1 mg PO TID PRN withdrawal #0 06/02/23 tabs lidocaine 4 % topical patch 2 patch transdermal DAILY #0 ea 06/02/23 (Lidocaine Pain Relief) metronidazole 500 mg tablet 500 mg PO Q8H #0 tabs 06/02/23 risperidone 2 mg tablet 2 mg PO BID #0 tabs 06/02/23 thiamine mononitrate (vit B1) 100 100 mg PO DAILY #0 tabs 06/02/23 mg tablet Mental Status Exam Mental Status Exam Patient Appearance: Appropriate Patient Orientation: Person, Place, Time and Situation Level of Consciousness: Alert Patient Behavior: Talkative and Good Eye Contact Mood Description: Apprehensive Affect Description: Flat and Apprehensive Patient Cognition Impaired: No Ability to Follow Directions: Good Speech Pattern: Spontaneous Speech Memory Description: Episodic Impaired Hallucinations: None Delusions: Not Present Thought Process: Distracted (medicine seeking) Thought Content: positive for Circumstantial, positive for Perseveration and positive for Suicidal Ideation (denies) Depressive Symptoms: Thoughts of /Suicide (denies) Judgement: Poor DS: Summary Hospital Course Hospital Course: Re-admission after discharge to adult psychiatry. Pt left the hospital, returned home, immediately used substances and listened to voice mails from her partner. She reports she then went to the street and was returned to the hospital. During her stay she continued to deny addictive issues and reported her issues were solely psychosocial, requiring financial and housing resources. Section 35 was filed for consideration from the court. This was validated and pt was transferred for further treatment. Time spent discussing smoking cessation with patient: 3 to 10 minutes Status at Discharge Functional status at discharge: independent ambulation Overall status at discharge: patient is not back to baseline Time Spent with Patient Time attestation: Total time managing care of this patient today ____ minutes. Time spent: Greater than 30 minutes Discharge Plan Discharge Anticipated Discharge Date/Time: 06/02/23 10:00 Patient Disposition: Xfer Other Discharge Diagnosis: Bipolar Disorder Opiate Use Disorder Cocaine Use Disorder Referrals: Physician,Unknown J [Primary Care Provider] - 1 Week Discharge Medications: New clonidine HCl 0.1 mg Tablet 0.1 mg PO TID PRN (Reason: withdrawal) Qty: 0 0RF Protocol: Hold for SBP< HOLD for SBP < : 90 lidocaine [Lidocaine Pain Relief] 4 % Adhesive Patch,Medicated 2 patch transdermal DAILY Qty: 0 0RF Protocol: Apply to: Apply to: back metronidazole 500 mg Tablet 500 mg PO Q8H Qty: 0 0RF risperidone 2 mg Tablet 2 mg PO BID Qty: 0 0RF thiamine mononitrate (vit B1) 100 mg Tablet 100 mg PO DAILY Qty: 0 0RF Continued quetiapine 25 mg Tablet 25 mg PO TID PRN (Reason: agitation, anxiety) Qty: 21 1RF nicotine 14 mg/24 hr patch 24 hour 1 patch topical QAM Qty: 30 0RF nicotine (polacrilex) 2 mg gum 4 mg PO Q2H PRN (Reason: nicotine cravings) Qty: 60 0RF trazodone 50 mg tablet 50 mg PO BEDTIME prazosin 1 mg capsule 1 mg PO BEDTIME clonazepam 0.5 mg tablet 0.5 mg PO TID PRN (Reason: anxiety) ondansetron 8 mg tablet,disintegrating 8 mg PO BID PRN (Reason: nausea/vomiting) lamotrigine 25 mg tablet 25 mg PO BEDTIME hydroxyzine HCl 25 mg tablet 25 mg PO QID quetiapine 50 mg tablet 50 mg PO BEDTIME methadone [Methadone Intensol] 10 mg/mL Concentrate 70 mg PO DAILY multivitamin Tablet 1 tab PO DAILY omeprazole 20 mg capsule,delayed release(DR/EC) 20 mg PO QAM gabapentin 100 mg capsule 100 mg PO TID cyclobenzaprine 5 mg tablet 5 mg PO TID PRN (Reason: Spasms) Discontinued risperidone 0.5 mg tablet 0.5 mg PO BID Discharge Orders: Discharge Order (Routine); Ordered 06/02/23 Ordered By: Shy Prakash Diet: Advance to usual diet Activity on Discharge: As tolerated Stand Alone Forms: Patient Portal Discharge page, Community Support Care Plan Goals: Mood and Behavioral Stabilization Work on sobriety Health Concerns: Mood and Behavioral Stabilization Sobriety Plan of Treatment: Section 35 filed. Pt will discuss further treatment with the court this morning. Assessment: Pt will go to [facility] [address] this a.m. to discuss further treatment. Discharge Date/Time: 06/02/23 10:45
== END 2023-06-02 10:45 | disposition other institution (70) | DRG 885 ==
LOC: HO.ED 22:29 → HO.PM5 05-29 18:50
PROVIDERS: Admitting Provider Psychiatry & Neurology Psychiatry; Emergency Provider Internal Medicine; Visit Provider Clinical Nurse Specialist Psychiatric/Mental Health, Adult
DX: F31.9 Bipolar disorder, unspecified (principal); F11.20 Opioid dependence, uncomplicated; F14.20 Cocaine dependence, uncomplicated; F17.210 Nicotine dependence, cigarettes, uncomplicated; Z71.6 Tobacco abuse counseling; Z20.822 Contact with and (suspected) exposure to COVID-19; Z79.899 Other long term (current) drug therapy
CPT/HCPCS: 80307; 81003; 81025; 87635; 93005; 99285; J1200; J2060

== ENCOUNTER → 2023-05-29 18:46 | Outpatient (BNV) | payer MEDICARE, MEDICAID, SELFPAY | PROVIDERS: Admitting Provider Psychiatry & Neurology Psychiatry; Emergency Provider Internal Medicine; Visit Provider Clinical Nurse Specialist Psychiatric/Mental Health, Adult | DX: F31.4 Bipolar disorder, current episode depressed, severe, without psychotic features (principal); F11.20 Opioid dependence, uncomplicated; F14.20 Cocaine dependence, uncomplicated | CPT/HCPCS: 99222; 99232; 99239 ==